=== PATIENT | female | born 1945 | race Hispanic/Latino ===

== ENCOUNTER 2017-06-22 09:42 | Inpatient (IN) | payer MEDICARE ==
--- NOTE | 2017-06-22 10:04 | ED PDOC ---
Arrival/HPI - General Chief Complaint: Shortness Of Breath Time Seen by Provider: 06/22/17 09:46 Historian: Patient - History of Present Illness Narrative History of Present Illness (Text): 06/22/17 10:02 72yo female with PMhx of hypertension who was referred to ED by Dr. odom for SOB and palpitation x 2weeks. Patient states SOB became worse and she saw Dr. odom today. while in the office, EKG showed new onset Afib and patient was referred to the ED. She denies chest pain, fever, cough, diaphoresis, LE edema, calf pain, nausea, vomiting, any other complaint. Past Medical History - Provider Review Nursing Documentation Reviewed: Yes - Infectious Disease Hx of Infectious Diseases: None - Reproductive Menopause: Yes - Cardiac Hx Hypertension: Yes - Pulmonary Hx Respiratory Disorders: No - Neurological Hx Neurological Disorder: No Hx Paralysis: No - HEENT Hx HEENT Disorder: No - Renal Hx Renal Disorder: No - Endocrine/Metabolic Hx Endocrine Disorders: No - Hematological/Oncological Hx Blood Transfusions: No Hx Blood Transfusion Reaction: No - Musculoskeletal/Rheumatological Hx Musculoskeletal Disorders: No - Psychiatric Hx Physical Abuse: No Hx Substance Use: No - Anesthesia Hx Anesthesia Reactions: No Hx Malignant Hyperthermia: No - Suicidal Assessment Feels Threatened In Home Enviroment: No Family/Social History - Physician Review Nursing Documentation Reviewed: Yes Family/Social History: Unknown Family HX Smoking Status: Unknown If Ever Smoked Hx Alcohol Use: No Hx Substance Use: No Allergies/Home Meds Allergies/Adverse Reactions: Allergies No Known Allergies Allergy (Verified 01/14/12 09:35) Home Medications: Home Meds Medication Instructions Recorded Confirmed Aspirin [Aspir 81] 81 mg PO DAILY 01/14/12 06/22/17 Atorvastatin [Lipitor] 20 mg PO QPM 01/14/12 06/22/17 Metoprolol Succinate [Toprol XL] 100 mg PO QAM 01/14/12 06/22/17 Co-Q10 100 mg PO DAILY 06/22/17 06/22/17 FLUoxetine [Fluoxetine HCl] 20 mg PO DAILY 06/22/17 06/22/17 Glucosamine Sulfate Dipot Chlr 1,500 mg PO DAILY 06/22/17 06/22/17 [Glucosamine] Glucosamn/[place]/C/Mn/[place] 1 each PO DAILY 06/22/17 06/22/17 [[facility] Glucosamine Chondroitin Tb] Lansoprazole [Prevacid] 30 mg PO DAILY 06/22/17 06/22/17 Losartan/Hydrochlorothiazide 1 each PO DAILY 06/22/17 06/22/17 [Losartan-Hctz 100-25 mg Tab] Multi Vitamin 1 tab PO DAILY 06/22/17 06/22/17 [place]-3 Fatty Acids/Fish Oil 1 each PO DAILY 06/22/17 06/22/17 [[place] 3 Fish Oil Softgel] Vit D 1000 1 tab PO DAILY 06/22/17 06/22/17 Vitamin E 1 tab PO DAILY 06/22/17 06/22/17 Review of Systems - Physician Review All systems were reviewed & negative as marked: Yes - Review of Systems Constitutional: Normal Eyes: Normal ENT: Normal Respiratory: SOB Cardiovascular: Palpitations. absent: Chest Pain, Edema, Calf Pain Gastrointestinal: Normal Genitourinary Female: Normal Musculoskeletal: Normal Skin: Normal Neurological: Normal Endocrine: Normal Hemo/Lymphatic: Normal Psychiatric: Normal Physical Exam Vital Signs Reviewed: Yes Vital Signs Temp Pulse Resp BP Pulse Ox 06/22/17 13:36 96 H 18 100/69 97 06/22/17 11:42 98 H 18 108/79 98 06/22/17 10:37 108 H 104/91 H 06/22/17 09:55 18 06/22/17 09:50 98.2 F 110 H 16 117/82 98 Temperature: Afebrile Blood Pressure: Normal Pulse: Regular Respiratory Rate: Normal Appearance: Positive for: Well-Appearing, Non-Toxic, Comfortable Pain Distress: None Mental Status: Positive for: Alert and Oriented X 3 - Systems Exam Head: Present: Atraumatic, Normocephalic Pupils: Present: PERRL Extroacular Muscles: Present: EOMI Conjunctiva: Present: Normal Mouth: Present: Moist Mucous Membranes Neck: Present: Normal Range of Motion Respiratory/Chest: Present: Clear to Auscultation, Good Air Exchange. No: Respiratory Distress, Accessory Muscle Use Cardiovascular: Present: Regular Rate and Rhythm, Normal S1, S2. No: Murmurs Abdomen: No: Tenderness, Distention, Peritoneal Signs Back: Present: Normal Inspection Upper Extremity: Present: Normal Inspection. No: Cyanosis, Edema Lower Extremity: Present: Normal Inspection. No: Edema Neurological: Present: GCS=15, CN II-XII Intact, Speech Normal Skin: Present: Warm, Dry, Normal Color. No: Rashes Psychiatric: Present: Alert, Oriented x 3, Normal Insight, Normal Concentration Medical Decision Making ED Course and Treatment: 06/22/17 10:05 72yo female in ED for 2weeks history of SOB and palpitation. EKG A fib with RVR @ 109bpm. cardiac labs, thyroid panel chest xray Cardizem and ASA ordered Pt will be admitted to Dr. davenport's service. CXR NAD Potassium repleted 06/22/17 18:[address] Davenport and pt was admitted. - Lab Interpretations Lab Results: 06/22/17 10:15 06/22/17 10:15 Lab Results 06/22/17 10:15: Thyroxine (T4) 10.7, T3 Uptake 33.5, TSH 3rd Generation 2.59 06/22/17 10:15: Sodium 141, Potassium 3.3 L, Chloride 99, Carbon Dioxide 29, Anion Gap 17, BUN 14, Creatinine 0.7, Est GFR ( Amer) > 60, Est GFR (Non- Af Amer) > 60, Random Glucose 120 H, Calcium 9.3, Total Bilirubin 0.7, AST 38 H , ALT 60 H, Alkaline Phosphatase 86, Lactate Dehydrogenase 516, Total Creatine Kinase 52, Troponin I < 0.01, Total Protein 7.2, Albumin 4.3, Globulin 2.9, Albumin/Globulin Ratio 1.5 06/22/17 10:15: PT 13.6 H, INR 1.18 H, APTT 27.0 06/22/17 10:15: WBC 6.8, RBC 4.41, Hgb 12.4, Hct 37.2, MCV 84.4, MCH 28.1, MCHC 33.3, RDW 14.1, Plt Count 293, MPV 10.7, Gran % 70.0 H, Lymph % (Auto) 19.9 L, [place] % (Auto) 7.0 H, Eos % (Auto) 1.8, Baso % (Auto) 1.3, Gran # 4.78, Lymph # ( Auto) 1.4, [place] # (Auto) 0.5, Eos # (Auto) 0.1, Baso # (Auto) 0.09 - RAD Interpretation Radiology Orders: 06/22/17 09:56 CHEST PORTABLE [RAD] Stat - Medication Orders Current Medication Orders: Aspirin (Ecotrin) 81 mg PO DAILY JOSHUA Atorvastatin Calcium (Lipitor) 20 mg PO QPM JOSHUA Fluoxetine HCl (Prozac) 20 mg PO DAILY J[facility]UA Hydrochlorothiazide (Hydrodiuril) 25 mg PO DAILY JOSHUA Losartan Potassium (Cozaar) 100 mg PO DAILY [facility] Metoprolol Succinate (Toprol Xl) 100 mg PO QAM JOSHUA Discontinued Medications Aspirin (Aspirin) 325 mg PO STAT STA Stop: 06/22/17 13:30 Last Admin: 06/22/17 13:48 Dose: 325 mg Diltiazem HCl (Cardizem) 60 mg PO STAT STA Stop: 06/22/17 10:26 Last Admin: 06/22/17 10:37 Dose: 60 mg MAR Pulse and Blood Pressure Document 06/22/17 10:37 MOBILE PHLEBOTOMIST (Rec: 06/22/17 10:39 [facility] [address] [id number]) Pulse Pulse Rate (60-90) 108 Blood Pressure Blood Pressure (100/60-150/90) 104/91 Potassium Chloride (K-Dur 20 Meq Er Tab) 20 meq PO STAT STA Stop: 06/22/17 10:37 Last Admin: 06/22/17 10:41 Dose: 20 meq Disposition/Present on Arrival - Present on Arrival Any Indicators Present on Arrival: No History of DVT/PE: No History of Uncontrolled Diabetes: No Urinary Catheter: No History of Decub. Ulcer: No History Surgical Site Infection Following: None - Disposition Have Diagnosis and Disposition been Completed?: Yes Diagnosis: New onset a-fib Disposition: HOSPITALIZED Disposition Time: 11:10 Patient Plan: Admission Patient Problems: Current Active Problems Problem Status Onset New onset a-fib Acute Condition: FAIR
[2017-06-22 10:33] LABS: BASO # 0.09 K/mm3 (0.0-2.0); BASO % 1.3 % (0.0-3.0); EOS # 0.1 (0.0-0.7); EOS % 1.8 % (1.5-5.0); GRAN # 4.78 (1.4-6.5); HEMOGLOBIN 12.4 g/dL (12.0-16.0); LYMPH # 1.4 (1.2-3.4); LYMPH % 19.9 % (22.0-35.0); MEAN CELL VOLUME 84.4 fl (80.0-105.0); MEAN CORPUSCULAR HEMOGLOBIN 28.1 pg (25.0-35.0); MEAN CORPUSCULAR HGB CONC 33.3 g/dl (31.0-37.0); MEAN PLATELET VOLUME 10.7 fl (7.0-11.0); MONO # 0.5 (0.1-0.6); RBC 4.41 10^6/uL (3.5-6.1); RED CELL DISTRIBUTION WIDTH 14.1 % (11.5-14.5); WHITE BLOOD COUNT 6.8 10^3/ul (4.5-11.0)
[2017-06-22 10:35] LABS: ALB/GLOB RATIO 1.5 (1.1-1.8); ALBUMIN 4.3 g/dL (3.0-4.8); ALT/SGPT 60 U/L (7-56); AST/SGOT 38 U/L (14-36); BLOOD UREA NITROGEN 14 mg/dL (7-21); CALCIUM 9.3 mg/dL (8.4-10.5); GFR AFRICAN-AMERICAN > 60; GFR NON-AFRICAN AMERICAN > 60
[2017-06-22] MEDS ORDERED: Potassium Chloride 20 mEq ER Tab PO STA (10:36)
[2017-06-22 10:42] LABS: INR 1.18 (0.93-1.08); PROTHROMBIN TIME 13.6 SECONDS (9.4-12.5)
[2017-06-22 10:46] LABS: TROPONIN I < 0.01 ng/mL
[2017-06-22 10:53] LABS: T3 UPTAKE 33.5 % (23.0-41.0); T4 10.7 ug/dL (5.5-11.0)
--- NOTE | 2017-06-22 10:55 | RAD ---
HISTORY: SOB COMPARISON: 05/07/2016 FINDINGS: LUNGS: No active pulmonary disease. PLEURA: No significant pleural effusion identified, no pneumothorax apparent. CARDIOVASCULAR: Normal. OSSEOUS STRUCTURES: No significant abnormalities. VISUALIZED UPPER ABDOMEN: Normal. OTHER FINDINGS: None. IMPRESSION: No active disease.
--- NOTE | 2017-06-22 18:25 | CARD ---
APPROVED REPORT EKG Measurement Heart [id number] <Conclusion> Atrial fibrillation with rapid ventricular response with premature ventricular or aberrantly conducted complexes Nonspecific ST and T wave abnormality, probably digitalis effect Abnormal ECG
--- NOTE | 2017-06-23 00:44 | CP.PCM.PN ---
Subjective - Date & Time of Evaluation Date of Evaluation: 06/23/17 Time of Evaluation: 00:33 - Subjective Subjective: S:Patient was seen at bedside. She requested a sleeping pill. Has no other complaints. Pertinent medical record was reviewed. O: Last Vital Signs 3 Temp 97.8 F 06/22/17 17:35 Pulse 98 H 06/22/17 18:00 Resp 20 06/22/17 17:35 BP 133/81 06/22/17 17:35 Pulse Ox 97 06/22/17 13:36 Awake, alert, not in distress. Obese person. LUNGS: Normal breathing pattern. NEURO:Speech normal. A:Adjustment Insomnia. P:Benadryl 50 mg PO X 1. Objective - Vital Signs/Intake and Output Vital Signs (last 24 hours): Temp Pulse Resp BP Pulse Ox 97.8 F 98 H 20 133/81 97 06/22/17 17:35 06/22/17 18:00 06/22/17 17:35 06/22/17 17:35 06/22/17 13:36 - Medications Medications: Current Medications Aspirin (Ecotrin) 81 mg PO DAILY JOSHUA Atorvastatin Calcium (Lipitor) 20 mg PO QPM JOSHUA Diphenhydramine HCl (Benadryl) 50 mg PO STAT STA Stop: 06/23/17 00:33 Fluoxetine HCl (Prozac) 20 mg PO DAILY JOSHUA Hydrochlorothiazide (Hydrodiuril) 25 mg PO DAILY JOSHUA Losartan Potassium (Cozaar) 100 mg PO DAILY JOSHUA Metoprolol Succinate (Toprol Xl) 100 mg PO QAM JOSHUA - Labs Labs: PT 13.6 SECONDS (9.4-12.5) H 06/22/17 10:15 INR 1.18 (0.93-1.08) H 06/22/17 10:15 APTT 27.0 Seconds (25.1-36.5) 06/22/17 10:15
[2017-06-23 06:28] VITALS: O2SAT 97
[2017-06-23] MEDS ORDERED: Non Formulary Medication (Losartan/Hydrochlorothiazide [Losartan-Hctz 100-25 Mg Tab] 1 EAC PO SCH (10:00)
[2017-06-23] MEDS ORDERED: Metoprolol Succinate 100 mg XL Tab PO SCH (10:00)
[2017-06-23] MEDS: Metoprolol Succinate 50 mg XL Tab PO SCH ×3 (10:01→18:01)
[2017-06-23] MEDS: Potassium Chloride 20 mEq ER Tab PO SCH ×2 (10:02→18:01)
[2017-06-23 10:55] LABS: ALB/GLOB RATIO 1.3 (1.1-1.8); ALBUMIN 3.6 g/dL (3.0-4.8); ALT/SGPT 59 U/L (7-56); AST/SGOT 32 U/L (14-36); BLOOD UREA NITROGEN 14 mg/dL (7-21); CALCIUM 9.2 mg/dL (8.4-10.5); GFR AFRICAN-AMERICAN > 60; GFR NON-AFRICAN AMERICAN > 60
--- NOTE | 2017-06-23 17:40 | HP ---
CHIEF COMPLAINT AND HISTORY OF PRESENT ILLNESS: This is a 72-year-old female who is coming into the hospital because of elevated heart rate. The patient had initially gone to see her primary care doctor, Dr. Sanchez, who was having shortness of breath and palpitations for the past 2 weeks. She said that her shortness of breath was getting worse. She had an EKG done in the office and it showed atrial fibrillation. The patient denies any chest pain. No abdominal pain or back pain. No dysuria, frequency, or nocturia. No weakness in the arms or the legs. REVIEW OF SYMPTOMS: All other review of symptoms are within normal limits except that was mentioned. ALLERGIES: NO KNOWN DRUG ALLERGIES. HOME MEDICATIONS: Aspirin, Lipitor, Toprol, fluoxetine, glucosamine, Prevacid, losartan/hydrochlorothiazide, vitamin D, vitamin E. SOCIAL HISTORY: The patient denies smoking, drinking alcohol. FAMILY HISTORY: Noncontributory. PAST MEDICAL HISTORY: Dyslipidemia and hypertension. PHYSICAL EXAMINATION: VITAL SIGNS: Temperature is 98.3, pulse of 110, blood pressure 118/79, respirations 18, O2 saturation 97%. GENERAL: The patient lying in bed, uncomfortable, and in no acute distress. HEENT: Atraumatic and normocephalic. Anicteric sclerae. Moist mucosa. [place] conjunctivae. No oral lesions. NECK: No JVD, anterior and posterior adenopathy, thyromegaly, or bruits. CARDIOVASCULAR: S1 and S2, irregular. No murmur, rubs. LUNGS: Clear to auscultation bilaterally. No wheezes, rales, or rhonchi. ABDOMEN: Bowel sounds are positive. Soft, nontender and nondistended. No hepatosplenomegaly. No rebound and no guarding. EXTREMITIES: No cyanosis, clubbing, or edema. NEUROLOGIC: No facial asymmetry. Tongue is midline. No uvula deviation. Power is 5/5 upper extremity and lower extremity. Sensation intact in upper extremity and lower extremity. PSYCHIATRIC: She is awake, alert and oriented x3. No anxiety or depression. She has normal affect. GENITOURINARY: No CVA tenderness. VASCULAR: 2+ pulses in the carotid pulses and pedal pulses. SKIN: No erythema or nodules. SPINE: Shows normal curvature. LABORATORY DATA: White count of 6.8, hemoglobin 12.4. INR is 1.1. Chemistry shows sodium 141, potassium 3.3. AST and ALT are 38 and 60. Troponin is 0.01. TSH is 2.59. EKG shows atrial fibrillation with rapid rate of 109, QTC 514. Chest x-ray done shows no active disease. ASSESSMENT: 1. Atrial fibrillation, new onset. 2. Dyslipidemia. 3. Obese with body mass index of 35. 4. Hypertension. PLAN: The patient is going to be admitted to hospital. She had a heart rate that is elevated. EKG shows an atrial fibrillation. The patient is going to need further evaluation. She is going to be seen by Dr. Saba this morning. I did speak to him regarding the case from Cardiology. The patient is on losartan for her hypertension. She is on hydrochlorothiazide for her hypertension as well. The patient is on Lipitor for dyslipidemia. She is on metoprolol for her atrial fibrillation. She will most likely needed to be on anticoagulation with Eliquis. The patient is on heart-healthy diet. We will continue to follow. We will await further input from Dr. Saba. Polo Davenport MD
--- NOTE | 2017-06-23 18:00 | CON ---
DATE: 06/23/2017 INDICATION: Atrial fibrillation, new onset. HISTORY OF PRESENT ILLNESS: This is a 72-year-old woman who was found to have atrial fibrillation when she complained to Dr. Sanchez of shortness of breath and palpitations for several weeks. She noted dyspnea on stair climbing and occasional palpitations. She presented to the emergency room. She was given Cardizem p.o. and admitted to telemetry. This morning, she notes occasional palpitations, but not chest pain, shortness of breath, orthopnea, PND, syncope, presyncope, lightheadedness, dizziness, or vertigo. No edema, claudication. No fever, chills, cough, sputum production, hemoptysis. No abdominal pain, nausea, vomiting, diarrhea, constipation, or melena. PAST MEDICAL HISTORY: Notable for hypertension, but no prior cardiac history. She has a history of negative stress test several years ago. There is no history of rheumatic fever, myocardial infarction, angina, congestive heart failure, prior arrhythmia, stroke, TIA, diabetes, hyperlipidemia, or gout. MEDICATIONS: At the time of admission include; metoprolol, aspirin, CoQ10, multivitamin, vitamins D and E, glucosamine chondroitin, Lipitor, losartan HCT, omega-3 fatty acids, Prevacid, fluoxetine. ALLERGIES: THERE WERE NO MEDICATION ALLERGIES. SOCIAL HISTORY: She lives at home with her . She is ambulatory. She does not smoke. She does not drink alcohol significantly. FAMILY HISTORY: Noncontributory. REVIEW OF SYSTEMS: A 10-point review of systems is otherwise unremarkable except as noted above. PHYSICAL EXAMINATION: GENERAL: She is a well-developed woman, sitting on her bed in telemetry, in no acute distress. VITAL SIGNS: Notable for atrial fibrillation at 100 to 125 beats per minute. She is afebrile. Blood pressure 109/65, respirations 18, O2 sat 96% to 97% on room air. HEENT: Reveal no neck vein distention, thyromegaly, or carotid bruits. Mucous membranes moist. Conjunctivae pink. NECK: Supple. LUNGS: Lung myles clear throughout. HEART: Reveals irregular rhythm. Normal first and second heart sounds. No murmur, gallop, rub, or click. PMI not palpable. ABDOMEN: Soft. Bowel sounds present. No mass, organomegaly, tenderness, rebound, or guarding. EXTREMITIES: Reveal no cyanosis, clubbing, or edema. NEUROLOGIC: She is awake, alert, and oriented. PSYCHIATRIC: Normal as to mood and affect. SKIN: Warm and dry. No rash or cellulitis. LABORATORY AND IMAGING: The chest x-ray revealed no acute disease. EKG demonstrated atrial fibrillation with ventricular rate of 109 beats per minute. There were nonspecific ST wave changes. CBC is unremarkable. PT/INR 13.6 and 1.18, PTT 27. Electrolytes notable for potassium of 3.3, otherwise unremarkable. BUN and creatinine normal. Random blood sugar 120. Mildly elevated AST and ALT. Alk phos is normal. LDH is normal. CK is normal. Two troponin's are normal. Thyroid functions are normal. IMPRESSION: Dayami Jaramillo is a 72-year-old hypertensive woman who presents with atrial fibrillation of approximately two weeks' duration by symptoms. There is no evidence of acute myocardial infarction. She does not describe chest pain, although sometimes the palpitations are associated with a tightness in the upper chest. Her potassium level is low. PLAN: At this time, she is on telemetry. We will increase her metoprolol to 150 mg daily, given 50 mg t.i.d. to control her rate and perhaps cause reversion to sinus rhythm. We will replace potassium. We will continue Lipitor. I will add Eliquis 5 mg b.i.d. and discontinue aspirin at this time. She can be out of bed. We will monitor stool for occult blood. I will order an echocardiogram. I will arrange for an outpatient nuclear stress test. She will be instructed regarding the use of long-term anticoagulation. Her LYLA score is 3. I will follow along with you. I will make additional recommendations based on her clinical course. Lc Saba MD CHANI
--- NOTE | 2017-06-24 01:07 | CP.PCM.PN ---
Subjective - Date & Time of Evaluation Date of Evaluation: 06/24/17 Time of Evaluation: 01:02 - Subjective Subjective: S: Patient was seen at bedside because she requested a sleeping pill. States that she received benadryl yesterday for sleep which was not of much help. Has no other complaints. Pertinent medical record was reviewed. O: Last Vital Signs 3 Temp 98.6 F 06/23/17 17:16 Pulse 103 H 06/23/17 18:01 Resp 17 06/23/17 17:16 BP 119/76 06/23/17 18:01 Pulse Ox 97 06/23/17 06:00 Awake,alert, not in distress. LUNGS: Normal breathing pattern. NEURO: Normal speech. A:Insomnia-adjustment. P:Ambien 5 mg PO x 1. Objective - Vital Signs/Intake and Output Vital Signs (last 24 hours): Temp Pulse Resp BP Pulse Ox 98.6 F 103 H 17 119/76 97 06/23/17 17:16 06/23/17 18:01 06/23/17 17:16 06/23/17 18:01 06/23/17 06:00 - Medications Medications: Current Medications Apixaban (Eliquis) 5 mg PO BID [facility] PRN Reason: Protocol Last Admin: 06/23/17 18:02 Dose: 5 mg Aspirin (Ecotrin) 81 mg PO DAILY [facility] Atorvastatin Calcium (Lipitor) 20 mg PO QPM [facility] Last Admin: 06/23/17 18:01 Dose: 20 mg Famotidine (Pepcid) 40 mg PO DAILY [facility] Last Admin: 06/23/17 11:00 Dose: Not Given Fluoxetine HCl (Prozac) 20 mg PO DAILY [facility] Last Admin: 06/23/17 10:01 Dose: 20 mg Losartan Potassium (Cozaar) 100 mg PO DAILY [facility] Last Admin: 06/23/17 10:02 Dose: 100 mg Metoprolol Succinate (Toprol Xl) 50 mg PO TID [facility] Last Admin: 06/23/17 18:01 Dose: 50 mg Potassium Chloride (K-Dur 20 Meq Er Tab) 20 meq PO BID [facility] Last Admin: 06/23/17 18:01 Dose: 20 meq - Labs Labs: 06/23/17 06:00 PT 13.6 SECONDS (9.4-12.5) H 06/22/17 10:15 INR 1.18 (0.93-1.08) H 06/22/17 10:15 APTT 27.0 Seconds (25.1-36.5) 06/22/17 10:15
[2017-06-24 04:47] VITALS: RESP 20
[2017-06-24 06:33] VITALS: TEMP 98.5
--- NOTE | 2017-06-24 08:34 | CARD ---
APPROVED REPORT EXAM: Two-dimensional and M-mode echocardiogram with Doppler and color Doppler. Other Information Quality : AverageRhythm : INDICATION Atrial fibrillation, HBP 2D DIMENSIONS Left Atrium (2D)4.7 (1.6-4.0cm)IVSd0.9 (0.7-1.1cm) LVDd4.5 (3.9-5.9cm)PWd1.0 (0.7-1.1cm) M-Mode DIMENSIONS Aortic Root2.60 (2.2-3.7cm)Aortic Cusp Exc.1.60 (1.5-2.0cm) Aortic Valve AoV Peak Jywigrvr664.0cm/Renea P 1/2 [id number] Mitral Valve E/A ratio0.0 TDI E/Lateral E'0.0E/Medial E'0.0 Pulmonary Valve PV Peak Ejjhsyod25.3cm/sPV Peak Grad.1mmHg Tricuspid Valve TR Peak [id number]/sRAP [id number] Peak Gr.51mmHg [id number] LEFT VENTRICLE The left ventricle is normal size. There is normal left ventricular wall thickness. Left ventricle systolic function is low normal. The Ejection Fraction is 50-55%. RIGHT VENTRICLE The right ventricle is normal size. ATRIA The left atrium is mildly dilated. The right atrium size is normal. The interatrial septum is intact with no evidence for an atrial septal defect. AORTIC VALVE The aortic valve is mildly calcified. There is mild aortic regurgitation. MITRAL VALVE The mitral valve is normal in structure. Mitral regurgitation is mild to moderate. TRICUSPID VALVE The tricuspid valve is normal in structure. There is moderate tricuspid regurgitation. There is moderate pulmonary hypertension. PULMONIC VALVE The pulmonic valve is not well visualized. GREAT VESSELS The aortic root is normal in size. PERICARDIAL EFFUSION There is no pericardial effusion. <Conclusion> The left ventricle is normal size. There is normal left ventricular wall thickness. Left ventricle systolic function is low normal. The Ejection Fraction is 50-55% (in AF). There is mild aortic regurgitation. Mitral regurgitation is mild to moderate. There is moderate tricuspid regurgitation. There is moderate pulmonary hypertension.
--- NOTE | 2017-06-24 08:50 | CP.PCM.PN ---
Subjective - Date & Time of Evaluation Date of Evaluation: 06/24/17 Time of Evaluation: 07:00 - Subjective Subjective: Stable on 2R. No CP or SOB. Still occasional palpitations while walking. V/S noted. AF ~ low 100's PE: Lungs: clear Cor.: irreg S1S2, sys murmur Abd.: soft Ext.: no edema Neuro.: alert Labs 06/23 noted. K+= 3.2, trops neg x 2 Echo: Low NL EF while in AF, mild AI, mild/mod MR, mod. TR and PH Objective - Vital Signs/Intake and Output Vital Signs (last 24 hours): Temp Pulse Resp BP Pulse Ox 98.5 F 116 H 20 144/104 H 97 06/24/17 06:00 06/24/17 06:00 06/24/17 06:00 06/24/17 06:00 06/24/17 06:00 Intake and Output: 06/24/17 06/24/17 06:59 18:59 Intake Total 780 340 Balance 780 340 - Medications Medications: Current Medications Apixaban (Eliquis) 5 mg PO BID [facility] PRN Reason: Protocol Last Admin: 06/23/17 18:02 Dose: 5 mg Aspirin (Ecotrin) 81 mg PO DAILY [facility] Atorvastatin Calcium (Lipitor) 20 mg PO QPM [facility] Last Admin: 06/23/17 18:01 Dose: 20 mg Famotidine (Pepcid) 40 mg PO DAILY [facility] Last Admin: 06/23/17 11:00 Dose: Not Given Fluoxetine HCl (Prozac) 20 mg PO DAILY [facility] Last Admin: 06/23/17 10:01 Dose: 20 mg Losartan Potassium (Cozaar) 100 mg PO DAILY [facility] Last Admin: 06/23/17 10:02 Dose: 100 mg Metoprolol Succinate (Toprol Xl) 100 mg PO BID [facility] Potassium Chloride (Klor-Con 10) 30 meq PO ONCE ONE Stop: 06/24/17 10:01 - Labs Labs: 06/23/17 06:00 PT 13.6 SECONDS (9.4-12.5) H 06/22/17 10:15 INR 1.18 (0.93-1.08) H 06/22/17 10:15 APTT 27.0 Seconds (25.1-36.5) 06/22/17 10:15 Assessment and Plan - Assessment and Plan (Free Text) Assessment: Palpitations/SOB New AF, probably 2 weeks old HBP Hypokalemia, probably due to HCTZ Plan: Increase metoprolol to 100 BID PO KCL 30 mg. this AM. OOB/Ambulate this AM Plan D/C later today. D/C meds: metoprolol tartrate 100 BID, Eliquis 5 BID, atorvastatin 20 QD. Discontinue: losartan/HCT and ASA. Office f/u Tuesday with stress test to follow. Will check K+ level. Case D/W Dr. Davenport.
[2017-06-24] MEDS ORDERED: Potassium Chloride 10 mEq ER Tab PO ONE (10:00)
[2017-06-24] MEDS ORDERED: Metoprolol Succinate 100 mg XL Tab PO ONE (10:44)
[2017-06-24 10:52] VITALS: BP 129/98; PULSE 90
--- NOTE | 2017-06-24 23:44 | DS ---
HISTORY OF PRESENT ILLNESS: The patient has no complaints of any chest pain, no shortness of breath, no headaches or dizziness. She initially came into the hospital because she had new-onset atrial fibrillation. The patient had been seen by Dr. Saba. An echocardiogram has been ordered, the results are pending. Her thyroid function was normal. She has currently controlled rate. She is on metoprolol three times a day as well as Eliquis. She has no headaches, no dizziness, no nausea, no vomiting. PHYSICAL EXAMINATION: VITAL SIGNS: Temperature is 98.1, pulse of 80, blood pressure is 117/85, respirations 20. GENERAL: The patient is lying in bed, flat, comfortable. HEENT: No oral lesion. Anicteric sclerae. Moist mucosa. NECK: No JVD, adenopathy, or thyromegaly. CARDIOVASCULAR: S1 and S2, regular. No murmurs, rubs, or gallops. LUNGS: Clear to auscultation bilaterally. No wheeze, rales, or rhonchi. ABDOMEN: Bowel sounds are positive, soft, nontender and nondistended. EXTREMITIES: No cyanosis, clubbing or edema. ASSESSMENT: 1. Atrial fibrillation, new onset. 2. Dyslipidemia. 3. Obesity with body mass index of 35. 4. Hypertension. PLAN: The patient is currently on losartan for hypertension. She has been started on apixaban for her anticoagulation. The patient is on Lipitor for dyslipidemia. She is on fluoxetine as an antidepressant. The patient is on metoprolol. She is going to be discharged home if she is cleared by Dr. Saba. CONDITION: Stable. ACTIVITY: Increased as tolerated. Polo Davenport MD
[2017-06-25] MEDS ORDERED: Metoprolol Succinate 100 mg XL Tab PO SCH ×2 (08:00→10:00)
[2017-06-25] MEDS ORDERED: Metoprolol Succinate 100 mg XL Tab PO ONE (10:43)
== END 2017-06-24 12:36 | disposition home or self-care (01) | DRG 310 ==
LOC: ED 09:42 → ERH 11:07 → 2RNO 14:16
PROVIDERS: ADMIT Internal Medicine Nephrology; ATTEND Internal Medicine Nephrology
DX: I48.91 Unspecified atrial fibrillation (principal); I10 Essential (primary) hypertension; E78.5 Hyperlipidemia, unspecified; E87.6 Hypokalemia; T50.2X5A Adverse effect of carbonic-anhydrase inhibitors, benzothiadiazides and other diuretics, initial encounter; E66.9 Obesity, unspecified; Z68.35 Body mass index [BMI] 35.0-35.9, adult; F51.02 Adjustment insomnia

== ENCOUNTER 2017-11-09 06:04 | Day surgery (SDC) | payer MEDICARE ==
[2017-10-19 09:19] VITALS: BMI 34.1
[2017-11-09] MEDS ORDERED: Iodixanol 320 mg/ml 150 ml Bottle IV ONE (06:47)
[2017-11-09] MEDS ORDERED: Iodixanol 320 MG/ML 100 ML BOTTLE IV ONE (06:47)
[2017-11-09] MEDS ORDERED: Phenylephrine 10 mg/ml Inj ONE (06:47)
[2017-11-09] MEDS ORDERED: Midazolam 2 MG/2 ML VIAL ONE ×2 (07:26→07:29)
[2017-11-09] MEDS ORDERED: Sodium Chloride 0.9% 1,000 ML IV SCH (08:00)
[2017-11-09 08:11] VITALS: TEMP 97.9
--- NOTE | 2017-11-09 08:37 | CARDCATH ---
PROCEDURE DATE: 11/09/2017 PROCEDURE: Right heart catheterization. HISTORY: This is a 72-year-old woman with recent onset of atrial fibrillation and progressive dyspnea, was found to have evidence of possible pulmonary hypertension on echocardiography. Right heart catheterization was advised to document her right heart pressures. INDICATIONS: As above. PROCEDURE FINDINGS: Venous access was obtained via the right femoral vein. Loomis-Anders catheter was used for pressure measurements and thermodilution cardiac output determination. The findings were as follows: The RA mean pressure was 3. The RV pressure was 24/2. The PA pressure was 28/19. The mean pulmonary artery pressure was 22. The pulmonary capillary wedge pressure was 12. A V wave with mitral regurgitation was noted to 25 mmHg. The cardiac output by thermodilution method was 4.4 liters/minute with cardiac index of 2.2 liters per minute per meter square. Loomis-Anders catheter was removed and the venous sheath removed as well. Manual pressure was applied to achieve adequate hemostasis. FINDINGS: 1. Normal right heart pressures. 2. Normal cardiac output. RECOMMENDATIONS: Given the above findings, continued medical therapy and monitoring of her mitral regurgitation is advised. Consideration will be given to attempts to restore normal sinus rhythm. Ander Beltran MD cc: Jigar Colby MD
[2017-11-09 09:08] VITALS: RESP 18
[2017-11-09 09:50] VITALS: PULSE 64
[2017-11-09 10:06] VITALS: BP 130/79; O2SAT 96
== END 2017-11-09 10:30 | disposition home or self-care (01) ==
LOC: CATH 06:04
PROVIDERS: ATTEND Internal Medicine Cardiovascular Disease
DX: I27.20 Pulmonary hypertension, unspecified (principal); I10 Essential (primary) hypertension; I49.9 Cardiac arrhythmia, unspecified; I34.0 Nonrheumatic mitral (valve) insufficiency; R06.00 Dyspnea, unspecified; E66.9 Obesity, unspecified; Z85.3 Personal history of malignant neoplasm of breast; I48.91 Unspecified atrial fibrillation; Z68.34 Body mass index [BMI] 34.0-34.9, adult
CPT/HCPCS: 36415; 86850; 86900; 93451; 99152; 99153; C1894; J1644; J2250; J3010; J7030; Q9967

== ENCOUNTER 2017-11-23 07:54 | Day surgery (SDC) | payer MEDICARE ==
[2017-11-21 12:06] VITALS: BMI 32.9
--- NOTE | 2017-11-23 09:02 | CARD ---
APPROVED REPORT Date of service: 11/23/2017 EKG Measurement Heart [id number] <Conclusion> Atrial fibrillation STTW changes c/w ischemia
[2017-11-23] MEDS ORDERED: Naloxone 0.4 mg/ml Inj (Adult) ONE (10:32)
[2017-11-23] MEDS ORDERED: Flumazenil 0.1 mg/ml Inj (5ml) IVP ONE (10:32)
[2017-11-23] MEDS ORDERED: Midazolam 2 MG/2 ML VIAL ONE (10:32)
[2017-11-23] MEDS ORDERED: Midazolam 2 MG/2 ML VIAL IV ONE ×2 (10:35→10:40)
[2017-11-23 12:06] VITALS: BP 127/69; PULSE 70; RESP 20; TEMP 98; O2SAT 99
--- NOTE | 2017-11-23 12:50 | CARD ---
APPROVED REPORT Date of service: 11/23/2017 EXAM: Transesophageal echocardiogram with color flow Doppler and Synchronized Cardioversion. INDICATION Atrial Fibrillation Reason For Test : Rule out Intracardiac Thrombus. PROCEDURE After obtaining informed consent, patient underwent transesophageal echo in the Echo Lab. Type of Sedation : Conscious Sedation Sedation was achieved with Versed, Fentanyl intravenously. Transesophageal probe was inserted and advanced into esophagus without difficulty. Echo enhancement agent administered: Agitated Saline The BILLY was performed without complications. Synchronized Cardioversion acheived with 360 Joules after 3 attempt(s). Rhythm following Synchronized Cardioversion: Normal Sinus Rhythm, but reversion to atrial fibrillation occurred Throughout the procedure, the blood pressure, pulse oximetry, cardiac rhythm, and rate were monitored. The patient tolerated the procedure without adverse effects. Recovery from conscious sedation was uneventful and vital signs were stable. LEFT VENTRICLE The left ventricle is normal size. There is mild concentric left ventricular hypertrophy. The left ventricular function is normal. The left ventricular ejection fraction is within the normal range. There is normal LV segmental wall motion. RIGHT VENTRICLE The right ventricle is normal size. The right ventricular systolic function is normal. ATRIA The left atrium is mildly dilated. The right atrium size is normal. The interatrial septum is intact with no evidence for an atrial septal defect. AORTIC VALVE The aortic valve is mildly sclerotic. No aortic regurgitation is present. There is no aortic valvular stenosis. MITRAL VALVE The mitral valve leaflets are mildly thickened. Mitral regurgitation is mild to moderate. TRICUSPID VALVE The tricuspid valve is normal in structure. There is mild to moderate tricuspid regurgitation. PULMONIC VALVE The pulmonary valve is normal in structure. GREAT VESSELS The aortic root is normal in size. The ascending aorta is normal in size. Mild atherosclerotic plaque is noted in the descending thoracic aorta. The IVC is normal in size and collapses >50% with inspiration. PERICARDIAL EFFUSION There is no pericardial effusion. There is no pleural effusion. <Conclusion> Dilated LA. Normal LV size and sysotlic function. Mild concentric LVH. Mild to moderate MR. Mild to moderate TR. Spontaneous echo contrast seen in DILIP, but no thrombus present. Cardioversion performed x 3 (100 Joules, 200 Joules, 360 Joules) with eventual conversion to NSR, but atrial fibrillation recurred.
--- NOTE | 2017-11-23 13:36 | CARD ---
APPROVED REPORT Date of service: 11/23/2017 EKG Measurement Heart [id number] <Conclusion> Atrial fibrillation ST & T wave changes c/w ischemia
== END 2017-11-23 12:30 | disposition home or self-care (01) ==
LOC: SDS 07:54 → SDSVAS 07:54 → SDS 12:30
PROVIDERS: ATTEND Internal Medicine Cardiovascular Disease
DX: I48.0 Paroxysmal atrial fibrillation (principal); I10 Essential (primary) hypertension; I25.10 Atherosclerotic heart disease of native coronary artery without angina pectoris; R06.00 Dyspnea, unspecified
CPT/HCPCS: 92960; 93005; 93312; J2250; J3010; J7040

== ENCOUNTER → 2018-01-06 | Day surgery (SDC) | payer MEDICARE ==
[2017-11-21 12:06] VITALS: BMI 32.9
[~2018-01-06] MED LIST: Propofol 10 mg/ml Inj (20 ML) ONE; Sodium Chloride 0.9% 1,000 ML IV SCH
[2018-01-06 14:43] VITALS: BP 131/73; PULSE 78; RESP 18; TEMP 97.9; O2SAT 99
== END | disposition home or self-care (01) ==
LOC: ENDO 09:43
PROVIDERS: ATTEND Internal Medicine Gastroenterology
DX: K57.30 Diverticulosis of large intestine without perforation or abscess without bleeding (principal); K56.2 Volvulus; K64.8 Other hemorrhoids; R19.7 Diarrhea, unspecified; K31.7 Polyp of stomach and duodenum; K22.70 Barrett's esophagus without dysplasia; K29.50 Unspecified chronic gastritis without bleeding; K21.9 Gastro-esophageal reflux disease without esophagitis; K44.9 Diaphragmatic hernia without obstruction or gangrene
CPT/HCPCS: 43239; 43251; 45380; 88305; 88312; 88342; J2001; J2704; J7030 ×2; J7040

== ENCOUNTER 2018-04-05 06:53 | Day surgery (SDC) | payer MEDICARE ==
[2018-03-29 09:31] VITALS: BMI 32.4
[2018-04-05] MEDS ORDERED: Midazolam 2 MG/2 ML VIAL ONE (08:56)
[2018-04-05] MEDS ORDERED: Naloxone 0.4 mg/ml Inj (Adult) ONE (08:56)
[2018-04-05] MEDS ORDERED: Flumazenil 0.1 mg/ml Inj (5ml) IVP ONE (08:56)
[2018-04-05] MEDS ORDERED: Midazolam 2 MG/2 ML VIAL IV ONE ×2 (09:25→09:29)
--- NOTE | 2018-04-05 10:12 | CARD ---
APPROVED REPORT Date of service: 04/05/2018 EKG Measurement Heart [id number] <Conclusion> Sinus bradycardia with 1st degree AV block Nonspecific ST abnormality Abnormal ECG
--- NOTE | 2018-04-05 10:13 | CARD ---
APPROVED REPORT Date of service: 04/05/2018 EKG Measurement Heart [id number] <Conclusion> Atrial fibrillation Abnormal ECG
[2018-04-05 10:45] VITALS: RESP 16; TEMP 97.4
[2018-04-05 10:59] VITALS: BP 107/71; PULSE 59; O2SAT 98
--- NOTE | 2018-04-06 08:27 | PROCN ---
PROCEDURE DATE: 04/05/2018 CARDIOVERSION REPORT PROCEDURE: Electrical cardioversion. HISTORY: This is a 73-year-old woman with paroxysmal atrial fibrillation who was brought in for attempted electrical cardioversion. She has been loaded with amiodarone. INDICATIONS: Atrial fibrillation. DESCRIPTION OF PROCEDURE: Informed consent was obtained including risks and benefits have been discussed in detail with the patient. IV Versed 4 mg and 100 mg of IV fentanyl were administered to achieve adequate sedation. Subsequently, cardioversion was performed with 200 joules of biphasic synchronous energy with successful conversion from atrial fibrillation to sinus rhythm. The patient tolerated the procedure well. CONCLUSION: Successful conversion of atrial fibrillation to sinus rhythm. RECOMMENDATIONS: The patient will be followed up us in the office tomorrow. Her amiodarone therapy will be continued at this time. Ander Beltran MD
== END 2018-04-05 11:05 | disposition home or self-care (01) ==
LOC: TEE 06:53
PROVIDERS: ATTEND Internal Medicine Cardiovascular Disease
DX: I48.0 Paroxysmal atrial fibrillation (principal); I10 Essential (primary) hypertension
CPT/HCPCS: 92960; 93005; J2250; J3010

== ENCOUNTER 2018-04-07 23:47 | Inpatient (IN) | payer MEDICARE ==
[2018-04-07 23:52] VITALS: BMI 33.3
--- NOTE | 2018-04-08 00:07 | ED PDOC ---
Arrival/HPI - General Chief Complaint: Chest Pain Time Seen by Provider: 04/07/18 23:51 Historian: Patient - History of Present Illness Narrative History of Present Illness (Text): 04/08/18 00:06 73 year old female, whose past medical history includes hiatal hernia, Jerardo's esophagus, GERD, Sleep Apnea on CPAP, Hypertension, paroxysmal a-fib s/p electrical cardioversion (04/05/[address] Beltran ), presents to the emergency department complaining of mid-sternal chest pressure and shortness of breath 2 hours prior to arrival while laying on the couch. Patient reports she had hotdogs and beans before the chest pressure began. She reports she is on Eliquis & amioderone. Patient denies any fever, chills, abdominal pain, nausea, vomiting, diarrhea, urinary symptoms, back pain, neck pain, headache, dizziness, or any other complaints. PMD: Dr. Sanchez Cardio: Dr. Saba Time/Duration: 1-3 hours Symptom Onset: Sudden Symptom Course: Unchanged Activities at Onset: Light Context: Home Past Medical History - Provider Review Nursing Documentation Reviewed: Yes - Travel History Have you recently traveled outside [place] w/in the past 3 mons?: No - Infectious Disease Hx of Infectious Diseases: None - Cardiac Hx Cardiac Disorders: Yes Hx Atrial Fibrillation: Yes (cardioverted 03/2018) Hx Hypertension: Yes Hx Pacemaker: No - Pulmonary Hx Respiratory Disorders: Yes Hx Asthma: Yes - Neurological Hx Paralysis: No - HEENT Hx HEENT Disorder: No - Renal Hx Renal Disorder: No - Endocrine/Metabolic Hx Endocrine Disorders: No - Hematological/Oncological Hx Blood Transfusions: No - Musculoskeletal/Rheumatological Hx Musculoskeletal Disorders: Yes - Gastrointestinal Hx Gastrointestinal Disorders: Yes - Psychiatric Hx Emotional Abuse: No Hx Physical Abuse: No Hx Substance Use: No - Surgical History Other/Comment: left breast lumpectomy - Anesthesia Hx Anesthesia Reactions: No Hx Malignant Hyperthermia: No - Suicidal Assessment Feels Threatened In Home Enviroment: No Family/Social History - Physician Review Nursing Documentation Reviewed: Yes Family/Social History: No Known Family HX Smoking Status: Never Smoked Hx Alcohol Use: No Hx Substance Use: No Allergies/Home Meds Allergies/Adverse Reactions: Allergies adhesive tape Allergy (Verified 04/07/18 23:52) RASH amoxicillin [From Augmentin] Adverse Reaction (Verified 04/08/18 03:20) DIARRHEA clavulanic acid [From Augmentin] Adverse Reaction (Verified 04/08/18 03:20) DIARRHEA Home Medications: Home Meds Medication Instructions Recorded Confirmed Atorvastatin [Lipitor] 20 mg PO QPM 01/14/12 04/08/18 FLUoxetine [Fluoxetine HCl] 20 mg PO DAILY 06/22/17 04/08/18 RX: [place]-3 Fatty Acids/Fish Oil 1 cap PO DAILY 06/22/17 04/08/18 [[place] 3 Fish Oil Softgel] Diltiazem HCl [Cartia Xt] 180 mg PO BID 10/19/17 04/08/18 Fluticasone Furoate [Arnuity 1 puff IH DAILY 10/19/17 04/08/18 Ellipta] Glucosamine/MSM/Chondroitin A 1 tab PO DAILY 10/19/17 04/08/18 [Glucosamine, Chondroitin and MSM 400 mg-375 M] Levalbuterol Tartrate 1 puff IH TID 10/19/17 04/08/18 [Levalbuterol Tartrate Hfa] RX: Omeprazole 40 mg PO DAILY 10/19/17 04/08/18 Vitamin E Mixed [Vitamin E] 1,000 unit PO DAILY 10/19/17 04/08/18 Calcium Citrate/Vitamin D2 1 tab PO DAILY 12/29/17 04/08/18 [Vinicio-Citrate Plus Vitamin D Tab] Ubidecarenone [Coq-10] 100 mg PO DAILY 12/29/17 04/08/18 Amiodarone [Cordarone] 200 mg PO BID 03/29/18 04/08/18 Review of Systems - Physician Review All systems were reviewed & negative as marked: Yes - Review of Systems Constitutional: absent: Fevers, Other (chills) Respiratory: SOB Cardiovascular: Chest Pain Gastrointestinal: absent: Abdominal Pain, Diarrhea, Nausea, Vomiting Genitourinary Female: absent: Dysuria, Frequency, Hematuria Musculoskeletal: absent: Back Pain, Neck Pain Neurological: absent: Headache, Dizziness Physical Exam Vital Signs Reviewed: Yes Temperature: Afebrile Blood Pressure: Hypertensive Pulse: Regular Respiratory Rate: Normal Appearance: Positive for: Well-Appearing, Non-Toxic, Comfortable Pain Distress: None Mental Status: Positive for: Alert and Oriented X 3 - Systems Exam Head: Present: Atraumatic, Normocephalic Pupils: Present: PERRL Extroacular Muscles: Present: EOMI Conjunctiva: Present: Normal Mouth: Present: Moist Mucous Membranes Respiratory/Chest: Present: Decreased Breath Sounds (bilaterally). No: Respiratory Distress, Accessory Muscle Use, Tachypneic Cardiovascular: Present: Regular Rate and Rhythm, Normal S1, S2. No: Murmurs, Rub, Gallop Abdomen: Present: Normal Bowel Sounds Upper Extremity: Present: Normal Inspection Lower Extremity: Present: Edema (+1 pitting edema) Neurological: Present: GCS=15, Speech Normal Skin: Present: Warm, Dry, Normal Color. No: Rashes Psychiatric: Present: Alert, Oriented x 3, Normal Insight, Normal Concentration Medical Decision Making ED Course and Treatment: 04/08/18 00:06 Impression: 73 year old female presents complaining of chest pressure and shortness of br eath that began 2 hours prior to arrival. Differential Diagnosis included but are not limited to: -- CHF -- Bronchitis -- Arrhythmia Plan: -- Labs -- EKG -- CXR -- Urinalysis -- Reassess and disposition Prior Visits: Notes and results from previous visits were reviewed. Progress Notes: 04/08/18 01:30 Labs reveal a leukocytosis of 15 with shift and elevated BNP at 565. CXR reveals increased interstitial markings. Will treat for presumed respiratory infection given clincal setting. Patient updated on results and accepts plan for admission. Case discussed with Dr. Davenport(PCP) who is aware and agrees with the plan. Accepts patient into his service. - Lab Interpretations Lab Results: 04/08/18 00:20 04/08/18 00:20 Lab Results 04/08/18 01:21: Urine Color Light yellow, Urine Appearance Clear, Urine pH 7.0, Ur Specific [place] 1.015, Urine Protein Negative, Urine Glucose (UA) Negative, Urine Ketones Negative, Urine Blood Trace-intact H, Urine Nitrate Negative, Urine Bilirubin Negative, Urine Urobilinogen 0.2, Ur Leukocyte Esterase Negative, Urine RBC 1 - 3 H, Urine WBC None, Ur Epithelial Cells 0 - 2, Urine Bacteria Few 04/08/18 00:20: Sodium 139, Potassium 3.3 L, Chloride 102, Carbon Dioxide 26, Anion Gap 14, BUN 12, Creatinine 0.6 L, Est GFR ( Amer) > 60, Est GFR (Non-Af Amer) > 60, Random Glucose 141 H, Calcium 8.5, Magnesium 1.7, Total Bilirubin 0.6, AST 32, ALT 35, Alkaline Phosphatase 130 H D, Troponin I < 0.01, NT-Pro-B Natriuret Pep 565 H, Total Protein 7.5, Albumin 4.1, Globulin 3.4, Albumin/Globulin Ratio 1.2 04/08/18 00:20: PT 17.1 H, INR 1.54, APTT 31.3 04/08/18 00:20: WBC 15.4 H, RBC 4.13, Hgb 10.5 L, Hct 33.3 L, MCV 80.6 D, MCH 25.4, MCHC 31.5, RDW 16.1 H, Plt Count 300, MPV 10.6, Neut % (Auto) 85.9 H, Lymph % (Auto) 5.3 L, [place] % (Auto) 8.3 H, Eos % (Auto) 0.1 L, Baso % (Auto) 0.4, Lymph # (Auto) 0.8 L, [place] # (Auto) 1.3 H, Eos # (Auto) 0.0, Baso # (Auto) 0.06, Absolute Neuts (auto) 13.21 H I have reviewed the lab results: Yes - RAD Interpretation Radiology Orders: 04/07/18 23:54 CHEST PORTABLE [RAD] Stat Hand Sign Writer: ED Physician - EKG Interpretation EKG Interpretation (Text): 04/07/18 23:55 EKG shows irregularly irregular at 76 BPM with prolonged QT interval. Interpreted by me Interpreted by ED Physician: Yes Type: 12 lead EKG - Medication Orders Current Medication Orders: 04/09/18 10:02 Acetaminophen (Tylenol 325mg Tab) 650 mg PO Q6H PRN PRN Reason: Headache Last Admin: 04/08/18 22:07 Dose: 650 mg [facility] Pain/Vitals Document 04/08/18 22:07 RS (Rec: 04/08/18 22:07 RS [id number]) Location Pain Location Body Literacy Coordinator Vitals Temperature (97.6 F-99.6 F) 100.7 F Temperature Source Oral Re-Assess: FARTUN Pain/Vitals Document 04/08/18 23:07 RS (Rec: 04/09/18 00:19 RS [id number]) Vitals Temperature (97.6 F-99.6 F) 99.1 F Temperature Source Oral Albuterol/Ipratropium (Duoneb 3 Mg/0.5 Mg (3 Ml) Ud) 3 ml IH Q4H PRN PRN Reason: Shortness of Breath Albuterol/Ipratropium (Duoneb 3 Mg/0.5 Mg (3 Ml) Ud) 3 ml IH TIDRESP JOSHUA Amiodarone HCl (Cordarone) 200 mg PO BID [facility] Last Admin: 04/08/18 17:44 Dose: 200 mg MAR Pulse and Blood Pressure Document 04/08/18 17:44 BK (Rec: 04/08/18 17:44 BK [id number]) Pulse Pulse Rate (60-90 beats/min) 68 Blood Pressure Blood Pressure (100/60-150/90 mm Hg) 141/74 Apixaban (Eliquis) 5 mg PO BID [facility]; Protocol Last Admin: 04/08/18 17:44 Dose: 5 mg Atorvastatin Calcium (Lipitor) 20 mg PO QPM [facility] Last Admin: 04/08/18 17:44 Dose: 20 mg Diltiazem HCl (Cardizem Cd) 180 mg PO BID [facility] Last Admin: 04/08/18 17:43 Dose: 180 mg MAR Pulse and Blood Pressure Document 04/08/18 17:43 BK (Rec: 04/08/18 17:44 BK [id number]) Pulse Pulse Rate (60-90 beats/min) 68 Blood Pressure Blood Pressure (100/60-150/90 mm Hg) 141/74 Doxycycline Hyclate (Doryx) 100 mg PO Q12 JOSHUA; Protocol Stop: 04/17/18 22:01 Last Admin: 04/08/18 21:26 Dose: 100 mg Fluoxetine HCl (Prozac) 20 mg PO DAILY [facility] Last Admin: 04/08/18 09:55 Dose: 20 mg Furosemide (Lasix) 40 mg IV DAILY [facility] Meropenem (Merrem Iv 1 Gm Premix) 1 gm in 50 mls @ 100 mls/hr IVPB Q8 JOSHUA; Protocol Stop: 04/16/18 14:01 Last Admin: 04/09/18 05:09 Dose: 100 mls/hr eMAR Start Stop Document 04/09/18 05:09 RS (Rec: 04/09/18 05:10 RS [id number]) Intravenous Solution Start Date 04/09/18 Start Time 05:09 End Date 04/09/18 End time 05:39 Total Infusion Time 30 Fluticasone Furoate [Arnuity Ellipta] ( Home) 1 puff IH DAILY JOSHUA Ubidecarenone [Coq- 10] 100 Mg (Home Med) 100 mg PO DAILY JOSHUA Pantoprazole Sodium (Protonix Ec Tab) 40 mg PO 0600 JOSHUA Last Admin: 04/09/18 05:09 Dose: 40 mg Potassium Chloride (Potassium Chloride Oral Soln) 20 meq PO DAILY JOSHUA Discontinued Medications Albuterol/Ipratropium (Duoneb 3 Mg/0.5 Mg (3 Ml) Ud) 3 ml IH STAT STA Stop: 04/08/18 22:31 Last Admin: 04/08/18 22:55 Dose: 3 ml Azithromycin (Zithromax) 500 mg PO STAT STA; Protocol Stop: 04/08/18 01:35 Last Admin: 04/08/18 01:52 Dose: 500 mg Ceftriaxone Sodium (Rocephin 1 Gram Ivpb) 1 gm in 100 mls @ 100 mls/hr IVPB STAT STA; Protocol Stop: 04/08/18 02:33 Last Admin: 04/08/18 01:52 Dose: 100 mls/hr eMAR Start Stop Document 04/08/18 01:52 EB (Rec: 04/08/18 01:52 EB [id number]) Intravenous Solution Start Date 04/08/18 Start Time 01:52 Pantoprazole Sodium (Protonix Ec Tab) 40 mg PO ONCE ONE Stop: 04/09/18 11:36 Pantoprazole Sodium (Protonix Ec Tab) 40 mg PO ONCE ONE Stop: 04/08/18 11:49 Last Admin: 04/08/18 12:05 Dose: 40 mg Potassium Chloride (K-Dur 20 Meq Er Tab) 40 meq PO ONCE ONE Stop: 04/08/18 08:06 Last Admin: 04/08/18 08:55 Dose: 40 meq - Scribe Statement The provider has reviewed the documentation as recorded by the Rob Gudino Provider Scribe Attestation: All medical record entries made by the Makenzieibconnie were at my direction and personally dictated by me. I have reviewed the chart and agree that the record accurately reflects my personal performance of the history, physical exam, medical decision making, and the department course for this patient. I have also personally directed, reviewed, and agree with the discharge instructions and disposition. Disposition/Present on Arrival - Present on Arrival Any Indicators Present on Arrival: No History of DVT/PE: No History of Uncontrolled Diabetes: No Urinary Catheter: No History of Decub. Ulcer: No History Surgical Site Infection Following: None - Disposition Have Diagnosis and Disposition been Completed?: Yes Diagnosis: PNA (pneumonia) Disposition: HOSPITALIZED Disposition Time: 01:30 Patient Plan: Admission Condition: GOOD
[2018-04-08 00:34] LABS: BASO # 0.06 K/mm3 (0.0-2.0); BASO % 0.4 % (0.0-3.0); EOS % 0.1 % (1.5-5.0); HEMOGLOBIN 10.5 g/dL (12.0-16.0); LYMPH # 0.8 (1.2-3.4); LYMPH % 5.3 % (22.0-35.0); MEAN CELL VOLUME 80.6 fl (80.0-105.0); MEAN CORPUSCULAR HEMOGLOBIN 25.4 pg (25.0-35.0); MEAN CORPUSCULAR HGB CONC 31.5 g/dl (31.0-37.0); MEAN PLATELET VOLUME 10.6 fl (7.0-11.0); MONO # 1.3 (0.1-0.6); MONO % 8.3 % (1.0-6.0); RBC 4.13 10^6/uL (3.5-6.1); RED CELL DISTRIBUTION WIDTH 16.1 % (11.5-14.5); WHITE BLOOD COUNT 15.4 10^3/uL (4.5-11.0)
[2018-04-08 00:53] LABS: INR 1.54; PARTIAL THROMBOPLASTIN TIME 31.3 Seconds (26.9-38.3); PROTHROMBIN TIME 17.1 SECONDS (9.4-12.5)
[2018-04-08 00:55] LABS: ALB/GLOB RATIO 1.2 (1.1-1.8); ALBUMIN 4.1 g/dL (3.0-4.8); ALT/SGPT 35 U/L (7-56); AST/SGOT 32 U/L (14-36); BLOOD UREA NITROGEN 12 mg/dL (7-21); CALCIUM 8.5 mg/dL (8.4-10.5); GFR NON-AFRICAN AMERICAN > 60
[2018-04-08 01:05] LABS: B-TYPE NATRIURETIC PEPTIDE 565 pg/mL (0-450); TROPONIN I < 0.01 ng/mL
[2018-04-08 01:34] LABS: URINE BILIRUBIN NEGATIVE (NEGATIVE); URINE BLOOD TRACE-INTACT (NEGATIVE); URINE GLUCOSE (UA) NEGATIVE (NEGATIVE); URINE LEUKOCYTE ESTERASE NEGATIVE Leu/uL (NEGATIVE); URINE PROTEIN NEGATIVE mg/dL (<30 mg/dL); URINE UROBILINOGEN 0.2 E.U./dL (<1 E.U./dL)
[2018-04-08] MEDS ORDERED: cefTRIAXone 1 gm 1 GM/100 ML BAG IVPB STA (01:34)
[2018-04-08 01:42] LABS: URINE APPEARANCE CLEAR (CLEAR); URINE COLOR LIGHT YELLOW (YELLOW)
[2018-04-08 02:32] LABS: URINE BACTERIA FEW /hpf; URINE EPITHELIAL CELLS 0 - 2 /hpf (0-5)
[2018-04-08] MEDS ORDERED: Potassium Chloride 20 mEq ER Tab PO ONE (08:05)
--- NOTE | 2018-04-08 08:41 | RAD ---
Date of service: 04/07/2018 HISTORY: chest pressure COMPARISON: 06/22/2017 FINDINGS: LUNGS: No active pulmonary disease. PLEURA: No significant pleural effusion identified, no pneumothorax apparent. CARDIOVASCULAR: No aortic atherosclerotic calcification present. Mild cardiomegaly moderate vascular congestion OSSEOUS STRUCTURES: No significant abnormalities. VISUALIZED UPPER ABDOMEN: Normal. OTHER FINDINGS: None. IMPRESSION: Mild cardiomegaly and moderate vascular congestion
--- NOTE | 2018-04-08 09:21 | HP ---
DATE OF EXAM: 04/08/2018 CHIEF COMPLAINT AND HISTORY OF PRESENT ILLNESS: This is a 73-year-old female who has come in to the hospital because of chest pain. She has a past medical history of hiatal hernia, gastroesophageal reflux disease with Riddle's sleep apnea. She had hypertension. The patient has atrial fibrillation and had a cardioversion on 04/05/[address] Beltran. She came into the hospital because she was having midsternal chest pain and shortness of breath prior to coming to the hospital. She states that she has been eating hot dogs and beans and thought that it may be related to her meals. She has been on her Eliquis for her anticoagulation. The patient says that it was a successful cardioversion by Dr. Beltran. REVIEW OF SYSTEMS: She has no complaints of any headaches. She has no chest pain. Currently she has no nausea or vomiting. She denies any significant cough. She has no weakness in the arms or the legs. No abdominal pain or back pain or dysuria, frequency or nocturia. All other review of symptoms are within normal limits except as mentioned. ALLERGIES: TO ADHESIVE TAPE. HOME MEDICATIONS: Lipitor, fluoxetine, Cardizem, fluticasone, glucosamine and chondroitin, levalbuterol, omeprazole, vitamin E, calcium, vitamin D, Coenzyme Q10, amiodarone. PAST MEDICAL HISTORY: As above. Arthritis, left breast cancer with lumpectomy and radiation. PAST SURGICAL HISTORY: Cholecystectomy, left lumpectomy, right salpingo-oophorectomy. SOCIAL HISTORY: She denies smoking or drinking. FAMILY HISTORY: Noncontributory. PHYSICAL EXAMINATION: VITAL SIGNS: Temperature is 99.4, pulse of 81, blood pressure is 158/76, respiration is 20, O2 saturation 94%. Height is 5 feet 5 inches, weight is 200 pounds, BMI is 33.3. GENERAL: The patient is lying in bed, comfortable, and in no acute distress. HEENT: Atraumatic and normocephalic. Anicteric sclerae. Moist mucosa. [place] conjunctivae. No oral lesions. NECK: No JVD, anterior and posterior adenopathy, thyromegaly, or bruits. CARDIOVASCULAR: S1 and S2 regular. No murmurs, rubs or gallops. LUNGS: Clear to auscultation bilaterally. No wheezes, rales, or rhonchi. ABDOMEN: Bowel sounds are positive. Soft, nontender and nondistended. No hepatosplenomegaly. No rebound and no guarding EXTREMITIES: No cyanosis, clubbing, or edema. NEUROLOGIC: No facial asymmetry. Tongue is midline. No uvula deviation. Power is 5/5 upper extremities and lower extremities. Sensation intact in upper extremities and lower extremities. PSYCHIATRIC: She is awake, alert and oriented x3. No anxiety or depression. She has normal affect. GENITOURINARY: No CVA tenderness. VASCULAR: 2+ pulses in the carotid pulses and pedal pulses. SKIN: No erythema or nodules SPINE: Shows normal curvature. LABORATORY DATA: White count of 15.4, hemoglobin is 10.5, platelet count 300. INR is 1.5. Chemistry shows a potassium of 3.3. The proBNP is 565. Urine shows blood trace, nitrates are negative, esterase is negative. Blood cultures are not done. Chest x-ray, it was reviewed by me and no infiltrates were seen. ASSESSMENT: 1. Possible aspiration pneumonia. 2. Atrial fibrillation, status post cardioversion on Eliquis. 3. Dyslipidemia. 4. Obese with a BMI of 33. 5. AMOXICILLIN ALLERGY. PLAN: The patient is going to be admitted to the hospital. The patient was given Zithromax. I will get ID evaluation and Cardiology evaluation. The patient will need repeat blood work and also the patient has anemia. I will workup her anemia. We will await further input from the consultants. Polo Davenport MD
[2018-04-08] MEDS: diltiaZEM 180 mg/24 Hours CD Cap PO SCH ×2 (09:56→17:43)
[2018-04-08] MEDS ORDERED: FLUTICASONE FUROATE IH SCH (10:00)
[2018-04-08] MEDS ORDERED: Pantoprazole 40 mg EC Tab PO ONE (11:48)
[2018-04-08] MEDS: Meropenem IV 1 gm in NS 1 GM/50 ML BAG IVPB SCH ×2 (13:44→21:26)
[2018-04-08 17:58] LABS: URINE BILIRUBIN NEGATIVE (NEGATIVE); URINE BLOOD NEGATIVE (NEGATIVE); URINE GLUCOSE (UA) NEGATIVE (NEGATIVE); URINE LEUKOCYTE ESTERASE NEGATIVE Leu/uL (NEGATIVE); URINE PROTEIN TRACE mg/dL (<30 mg/dL); URINE UROBILINOGEN 0.2 E.U./dL (<1 E.U./dL)
[2018-04-08 17:59] LABS: URINE APPEARANCE CLEAR (CLEAR); URINE COLOR YELLOW (YELLOW)
--- NOTE | 2018-04-08 18:11 | CON ---
DATE: 04/08/2018 The patient seen earlier today. CHIEF COMPLAINT: Shortness of breath x1 day duration. HISTORY OF PRESENT ILLNESS: This is a 73-year-old female with past medical history significant for breast cancer, GERD, hypertension, hiatal hernia and history of depression, anemia, sleep apnea. The patient had breast cancer 26 years ago, had chemotherapy radiation at that time, had a left lumpectomy at that time and recently diagnosed with atrial fibrillation past Tuesday, which would be approximately 4 days ago. The patient had a cardioversion past Tuesday and now had shortness of breath, low grade fevers, and no fevers, no chills, and no abdominal pain, diarrhea, or constipation. Minimal cough. No headaches or blurred vision. REVIEW OF SYSTEMS: Reveals 12-point review of systems is performed. PAST MEDICAL HISTORY: Past medical history is significant for breast cancer 26 years ago, had chemotherapy and radiation, then gastroesophageal reflux disease, also with hiatal hernia, hypertension, depression, anemia, sleep apnea, on CPAP. PAST SURGICAL HISTORY: Significant for cholecystectomy and a left lumpectomy 26 years ago and the patient also had a salpingo-oophorectomy, also years ago right ovary and right fallopian tubes. ALLERGIES: THE PATIENT STATED TO ME SHE DOES NOT HAVE ANY ALLERGIES TO ANY ANTIBIOTICS; HOWEVER, THE CHART STATES SHE IS ALLERGIC TO TAPE AND AUGMENTIN. MEDICATIONS: The patient's medications are reviewed. PHYSICAL EXAMINATION: GENERAL: The patient is in bed, answering questions appropriately, nontoxic. VITAL SIGNS: Temperature of 99.4, blood pressure is 155/80, respiratory rate of 27, and heart rate of 81. The patient is saturating at 94% with nasal cannula. HEENT: Examination of HEENT is unremarkable. NECK: Supple. LUNGS: Have decreased breath sounds. HEART: Sounds normal S1, S2. ABDOMEN: Soft, nontender. LABORATORY DATA: Laboratory examination reveals the patient's white count of 15,400, hemoglobin of 10, and platelets of 300. Coagulation is noted. Chemistries reveals a BUN of 12, creatinine of 0.6. The BNP is 565. Urinalysis is noted. Microbiology is reviewed and chest x-rays reported to be negative. Emergency room chart is reviewed. ASSESSMENT AND PLAN: This is a 73-year-old female with a past history of breast cancer with chemotherapy and radiation 26 years ago, gastroesophageal reflux disease and hiatal hernia, sleep apnea on CPAP at home, anemia, depression, hypertension, now the patient approximately 4 days ago, had cardioversion because of new-onset atrial fibrillation, presents with shortness of breath, low grade fevers, leukocytosis, hypoxia. Systemic inflammatory response syndrome must rule out healthcare-associated pneumonia in a patient who is allergic to Augmentin. We will start the patient on meropenem, doxycycline, pending blood cultures, urine culture, sputum cultures, nasal MRSA screen, procalcitonin, and CAT scan of the chest and we will make further recommendations upon availability of initial results. Andre Bennett MD [facility] # [id number]
[2018-04-08 21:27] LABS: URINE BACTERIA MOD /hpf
--- NOTE | 2018-04-08 21:41 | CARD ---
APPROVED REPORT Date of service: 04/07/2018 EKG Measurement Heart [id number] <Conclusion> Sinus rhythm with 1st degree AV block Prolonged QT Abnormal ECG
[2018-04-08] MEDS ORDERED: Albuterol-Ipratrop 3 mg / 0.5 (3 ml) UD IH STA (22:30)
[2018-04-08] MEDS ORDERED: Albuterol-Ipratrop 3 mg / 0.5 (3 ml) UD IH PRN (22:31)
--- NOTE | 2018-04-09 01:02 | CON ---
DATE OF CONSULTATION: 04/08/2018 REASON FOR CONSULTATION: Dyspnea. HISTORY: This is a 73-year-old woman, who has a history of paroxysmal atrial fibrillation and underwent a recent electrocardioversion, who presented with complaining of a mid sternal chest discomfort and dyspnea for the past several days. She had eaten hot dogs and beans, which she felt precipitated her chest discomfort. Her dyspnea has been progressive; however, a cardioversion was performed 3 days ago with successful inversion to sinus rhythm from atrial fibrillation. PAST MEDICAL HISTORY: Her past history is notable for gastroesophageal reflux disease, obstructive sleep apnea, hypertension, anxiety disorder, hyperlipidemia. She has had left breast cancer treated with lumpectomy and radiation. She also has a history of chronic arthritis, prior cholecystectomy, and right salpingo-oophorectomy. MEDICATIONS: Her medications at home include amiodarone, Lipitor, Cardizem, omeprazole, and fluoxetine. Eliquis 5 mg b.i.d. SOCIAL HISTORY: She does not smoke or drink. She is , lives with her . FAMILY HISTORY: Unremarkable for premature heart disease. REVIEW OF SYSTEMS: Ten-point review of systems is unremarkable. PHYSICAL EXAMINATION: GENERAL: She is a middle-aged woman, who appears comfortable at rest. VITAL SIGNS: Her blood pressure is 156/70 with a pulse of 70 and sinus, respirations are 14. She is afebrile. HEENT: Normocephalic, atraumatic. NECK: Supple. No JVD noted. CHEST: Bilateral scattered rhonchi heard. HEART: PMI in normal position. No pathological murmurs or gallops noted. ABDOMEN: Soft and nontender with normoactive bowel sounds. EXTREMITIES: No clubbing, cyanosis or edema. SKIN: Warm and dry. PSYCHIATRIC: Normal mood and affect. NEUROLOGIC: Alert and oriented x3. No gross motor or sensory deficits noted. DIAGNOSTIC DATA: Potassium is 3.3 and has been replaced. BUN and creatinine are 12 and 0.6, glucose 141. White count 15.4, hemoglobin and hematocrit are 10.5 and 33.3 with a platelet count of 300,000. BNP 565. Troponin is negative. Electrocardiogram reveals sinus rhythm with nonspecific ST-T abnormalities. Chest x-ray reveals mildly increased cardiac silhouette with mild congestive changes and a right perihilar infiltrate cannot be excluded. IMPRESSION/PLAN: Dyspnea and chest pain. Etiology not completely clear. Does appear to have some mild pulmonary vascular congestion. Given her recent sedation for her cardioversion, the possibility of aspiration pneumonia needs to be considered. She has been started on IV antibiotics for this possibility. IV Lasix will be added to her regimen as well. Thank you for this consultation. We will be happy to follow along through her hospital course and make further recommendations as appropriate. Ander Beltran MD
[2018-04-09] MEDS: Meropenem IV 1 gm in NS 1 GM/50 ML BAG IVPB SCH ×3 (05:09→21:50)
[2018-04-09] MEDS: Pantoprazole 40 mg EC Tab PO SCH (05:09)
[2018-04-09 07:01] LABS: IRON 23 ug/dL (45-180)
[2018-04-09 07:10] LABS: % IRON SATURATION 6 % (20-55); TOTAL IRON BINDING CAPACITY 364 ug/dL (265-497)
[2018-04-09 07:24] LABS: ALB/GLOB RATIO 1.1 (1.1-1.8); ALBUMIN 3.7 g/dL (3.0-4.8); ALT/SGPT 27 U/L (7-56); AST/SGOT 23 U/L (14-36); BLOOD UREA NITROGEN 11 mg/dL (7-21); CALCIUM 8.9 mg/dL (8.4-10.5); GFR NON-AFRICAN AMERICAN > 60
[2018-04-09 08:06] LABS: HEMOGLOBIN 9.8 g/dL (12.0-16.0); MEAN CELL VOLUME 81.5 fl (80.0-105.0); MEAN CORPUSCULAR HEMOGLOBIN 25.1 pg (25.0-35.0); MEAN CORPUSCULAR HGB CONC 30.8 g/dl (31.0-37.0); MEAN PLATELET VOLUME 10.8 fl (7.0-11.0); RBC 3.9 10^6/uL (3.5-6.1); RED CELL DISTRIBUTION WIDTH 16.5 % (11.5-14.5); WHITE BLOOD COUNT 13.9 10^3/uL (4.5-11.0)
--- NOTE | 2018-04-09 08:40 | PN ---
DATE: 04/09/2018 SUBJECTIVE: The patient is seen lying in bed on remote telemetry. She is comfortable. She states she had difficulty last evening with cough and dyspnea. She also had low grade fever 100.7. She remains in normal rhythm. CURRENT MEDICATIONS: Include Cardizem CD 108 mg daily, amiodarone 200 mg twice a day, doxycycline 100 mg twice a day, albuterol inhaler, Eliquis 5 mg twice a day, Lasix 40 mg daily, Lipitor 20 mg daily, meropenem, potassium, Protonix, Prozac. OBJECTIVE: GENERAL: She is a middle-aged woman who appears comfortable at rest. VITAL SIGNS: Blood pressure is 140/74, pulse 68, respirations are 16, current temperature is 99.1. HEENT: No JVD. CHEST: Bilateral scattered rhonchi heard. HEART: PMI displaced laterally with systolic murmur left sternal border. ABDOMEN: Soft, nontender with normoactive bowel sounds. EXTREMITIES: No edema. DIAGNOSTIC DATA: Morning blood work is pending. IMPRESSION: 1. Apparent bronchitis, possible aspiration pneumonia. 2. Mild pulmonary vascular congestion on IV Lasix. 3. Paroxysmal atrial fibrillation status post recent cardioversion currently in sinus rhythm. RECOMMENDATIONS: Current treatment should continue for now. IV Lasix will be switched to oral administration in the morning assuming she continues to improve. Continue respiratory therapy and antibiotics as advised. We will continue to follow and make further recommendations as appropriate. Ander Beltrna MD [facility]
--- NOTE | 2018-04-09 10:31 | CT ---
Date of service: 04/08/2018 PROCEDURE: CT Chest without contrast HISTORY: r/o pna COMPARISON: None available. TECHNIQUE: Contiguous axial images were obtained through the chest without intravenous contrast enhancement. Sagittal and coronal reconstructions were performed. Radiation dose: Total exam DLP = 662.6 mGy-cm. This CT exam was performed using one or more of the following dose reduction techniques: Automated exposure control, adjustment of the mA and/or kV according to patient size, and/or use of iterative reconstruction technique. FINDINGS: LUNGS: Perihilar infiltrates are seen right greater than left. This could be due to either CHF or pneumonia. Clinical correlation is suggested. MEDIASTINUM: Unremarkable thoracic aorta. No aneurysm. Normal sized heart. Main pulmonary artery unremarkable. No vascular congestion. No lymphadenopathy. No aortic atherosclerotic calcification. PLEURA: Small pleural effusions BONES: No fracture. No destructive lesion. UPPER ABDOMEN: Gallbladder removed. OTHER FINDINGS: The report concurs with the preliminary [facility] report IMPRESSION: Perihilar infiltrates are seen right greater than left. This could be due to either CHF or pneumonia. Clinical correlation is suggested.
[2018-04-09] MEDS: diltiaZEM 180 mg/24 Hours CD Cap PO SCH ×2 (10:36→18:25)
[2018-04-09] MEDS: Potassium Chloride 20 mEq/15 ml LIQ UD PO SCH (10:38)
[2018-04-09] MEDS ORDERED: FLUTICASONE FUROATE IH SCH (10:51)
[2018-04-09] MEDS ORDERED: Pantoprazole 40 mg EC Tab PO ONE (11:35)
[2018-04-09 12:30] LABS: FERRITIN 30.2 ng/mL
[2018-04-09] MEDS: Albuterol-Ipratrop 3 mg / 0.5 (3 ml) UD IH SCH ×2 (12:55→19:31)
--- NOTE | 2018-04-09 13:37 | PN ---
DATE: 04/09/2018 SUBJECTIVE: The patient has no complaints of any chest pain, no shortness of breath. She says her breathing is better. Overnight, she had another episode last night and required DuoNeb treatments for shortness of breath. PHYSICAL EXAMINATION: VITAL SIGNS: Temperature is 98.8, pulse is 69, blood pressure 140/83, respiration 20. GENERAL: The patient is lying in bed, flat, comfortable. HEENT: No oral lesion. Anicteric sclerae. Moist mucosa. NECK: No JVD, adenopathy, or thyromegaly. CARDIOVASCULAR: S1 and S2, regular. No murmurs, rubs, or gallops. LUNGS: Clear to auscultation bilaterally. No wheeze, rales, or rhonchi. ABDOMEN: Bowel sounds are positive, soft, nontender and nondistended. EXTREMITIES: no cyanosis, clubbing or edema. LABORATORY DATA: White count of 13.9, hemoglobin 9.8, creatinine is 0.7. ASSESSMENT: 1. Possible aspiration pneumonia versus hospital-acquired pneumonia. 2. Atrial fibrillation, status post cardioversion, on Eliquis. 3. Dyslipidemia. 4. Obesity with a body mass index of 33. 5. AMOXICILLIN ALLERGY. PLAN: The patient is going have a CAT scan, it was done and results are pending. The patient is currently on nebulizer treatments. She is on Eliquis for anticoagulation. For the atrial fibrillation, she is on Lasix daily. The patient is on Lipitor for dyslipidemia. She is on meropenem for antibiotics. She is going to continue with Protonix. She is on heart-healthy diet. She said she is feeling better. Polo Davenport MD
[2018-04-09] MEDS: UBIDECARENONE 100 MG PO SCH (14:07)
--- NOTE | 2018-04-09 16:49 | CP.PCM.PN ---
Subjective - Date & Time of Evaluation Date of Evaluation: 04/09/18 Time of Evaluation: 10:15 - Subjective Subjective: Not in distress, afebrile. Objective - Vital Signs/Intake and Output Vital Signs (last 24 hours): Temp Pulse Resp BP Pulse Ox 98.8 F 69 20 140/83 96 04/09/18 07:51 04/09/18 07:51 04/09/18 13:59 04/09/18 10:37 04/09/18 13:59 Intake and Output: 04/09/18 04/09/18 06:59 18:59 Intake Total 420 Balance 420 - Medications Medications: Current Medications Acetaminophen (Tylenol 325mg Tab) 650 mg PO Q6H PRN PRN Reason: Headache Last Admin: 04/09/18 13:05 Dose: 650 mg Albuterol/Ipratropium (Duoneb 3 Mg/0.5 Mg (3 Ml) Ud) 3 ml IH Q4H PRN PRN Reason: Shortness of Breath Albuterol/Ipratropium (Duoneb 3 Mg/0.5 Mg (3 Ml) Ud) 3 ml IH TIDRESP [facility] Last Admin: 04/09/18 12:55 Dose: 3 ml Amiodarone HCl (Cordarone) 200 mg PO BID [facility] Last Admin: 04/09/18 10:37 Dose: 200 mg Apixaban (Eliquis) 5 mg PO BID [facility]; Protocol Last Admin: 04/09/18 10:37 Dose: 5 mg Atorvastatin Calcium (Lipitor) 20 mg PO QPM [facility] Last Admin: 04/08/18 17:44 Dose: 20 mg Diltiazem HCl (Cardizem Cd) 180 mg PO BID [facility] Last Admin: 04/09/18 10:36 Dose: 180 mg Doxycycline Hyclate (Doryx) 100 mg PO Q12 [facility]; Protocol Stop: 04/17/18 22:01 Last Admin: 04/09/18 10:52 Dose: 100 mg Fluoxetine HCl (Prozac) 20 mg PO DAILY [facility] Last Admin: 04/09/18 10:36 Dose: 20 mg Furosemide (Lasix) 40 mg IV DAILY [facility] Last Admin: 04/09/18 10:37 Dose: 40 mg Meropenem (Merrem Iv 1 Gm Premix) 1 gm in 50 mls @ 100 mls/hr IVPB Q8 [facility]; Protocol Stop: 04/16/18 14:01 Last Admin: 04/09/18 15:19 Dose: 100 mls/hr Ubidecarenone [Coq- 10] 100 Mg (Home Med) 100 mg PO DAILY [facility] Last Admin: 04/09/18 14:07 Dose: Not Given Fluticasone Furoate [Arnuity Ellipta] ( Home) 1 puff IH DAILY [facility] Pantoprazole Sodium (Protonix Ec Tab) 40 mg PO 0600 [facility] Last Admin: 04/09/18 05:09 Dose: 40 mg Potassium Chloride (Potassium Chloride Oral Soln) 20 meq PO DAILY [facility] Last Admin: 04/09/18 10:38 Dose: 20 meq - Labs Labs: 04/09/18 06:00 04/09/18 06:00 PT 17.1 SECONDS (9.4-12.5) H 04/08/18 00:20 INR 1.54 04/08/18 00:20 APTT 31.3 Seconds (26.9-38.3) 04/08/18 00:20 - Constitutional Appears: Chronically Ill - Head Exam Head Exam: NORMAL INSPECTION - Respiratory Exam Respiratory Exam: Decreased Breath Sounds - Cardiovascular Exam Cardiovascular Exam: +S1, +S2 - GI/Abdominal Exam GI & Abdominal Exam: Soft. absent: Tenderness Assessment and Plan - Assessment and Plan (Free Text) Plan: Assessment SIRS R/O sepsis due to HCAP atrial fibrillation breast cancer S/P left lumpectomy GERD hiatal hernia HTN depression chronic anemia sleep apnea on CPAP S/P cholecystectomy S/P salpingo-oophorectomy Plan continue Doxycycline and Merrem day 2 and follow up final cultures; PCT is <0.05 follow up rapid Influenza test will continue to monitor clinically
[2018-04-10 00:42] VITALS: RESP 20
[2018-04-10] MEDS: Meropenem IV 1 gm in NS 1 GM/50 ML BAG IVPB SCH ×3 (05:19→21:07)
[2018-04-10] MEDS: Pantoprazole 40 mg EC Tab PO SCH (05:19)
[2018-04-10] MEDS: Albuterol-Ipratrop 3 mg / 0.5 (3 ml) UD IH SCH ×3 (08:28→19:55)
[2018-04-10] MEDS: diltiaZEM 180 mg/24 Hours CD Cap PO SCH ×2 (09:44→18:13)
[2018-04-10] MEDS: Potassium Chloride 20 mEq/15 ml LIQ UD PO SCH (09:45)
[2018-04-10] MEDS: UBIDECARENONE 100 MG PO SCH (09:54)
--- NOTE | 2018-04-10 10:13 | CON ---
DATE: 04/10/2018 PULMONARY CONSULTATION REFERRING PHYSICIAN: Dr. Davenport REASON FOR PULMONARY CONSULTATION: Pneumonia. The patient is a 73-year-old female, with past medical history significant for chronic obstructive pulmonary disease, obstructive sleep apnea (on CPAP), hiatal hernia, gastroesophageal reflux disease, paroxysmal atrial fibrillation, status post electrical cardioversion, who presents to [facility] with a one-day history of increasing shortness of breath at rest and dyspnea on exertion. The patient denies cough or sputum production. The patient also denies chest pain, coughing up of blood, or chest pain - brought on with deep respirations. The patient does state to chest "pressure" the day of admission - now resolved. The patient did have temperatures on 04/08/2018 (100.7). These temperatures have now resolved. No history of chills or infectious exposure. No history of night sweats, weight loss or appetite change prior to the above events. No history of calf pains. No history of syncope or diaphoresis. No history of recent travel or trauma. REVIEW OF SYSTEMS: No history of nausea, vomiting or diarrhea. No acute urinary symptoms. No new neurologic complaints. Rest of the review of systems is negative. ALLERGIES: TO AMOXICILLIN. SOCIAL HISTORY: Positive for former tobacco usage. No alcohol. FAMILY HISTORY: No inheritable diseases. HOME MEDICATIONS: Include levalbuterol, Arnuity Ellipta, Cardizem, Lipitor, Eliquis, Cordarone. PHYSICAL EXAMINATION: GENERAL: The patient appears quite comfortable this morning. She is not short of breath at rest. VITALS: Temperature is 99.1, pulse 79, respirations 18/20, blood pressure 142/69. Oxygen saturation on nasal cannula is 99%. HEENT: Normocephalic, atraumatic. No JVD. CARDIOVASCULAR: Systolic ejection murmur at the lower left sternal border. Questionable S3 gallop. LUNGS: Minimal crackles at both bases. Minimal rhonchi. No wheezing. EXTREMITIES: Mild edema. No cyanosis, no clubbing. Calves are nontender to palpation. GASTROINTESTINAL: Abdomen is soft, nontender, nondistended. Bowel sounds are positive. SKIN: No acute rash. NEUROLOGIC: Exam limited at the present time. PERTINENT LABORATORY DATA: CAT scan of the chest was done on 04/08/2018 and reviewed. There are bilateral perihilar infiltrates (right worse than left) - which could represent either congestive heart failure or pneumonia. There are also small bilateral pleural effusions. CBC: White count 13.9K, hemoglobin 9.8, hematocrit 31.8, platelets of 290,000. Complete metabolic profile: Glucose 113. Rest of the metabolic profile is within normal limits. Initial B-type natriuretic peptide 565. IMPRESSION: 1. Possible perihilar pneumonia, consider atypical. 2. Mild congestive heart failure. 3. Bilateral pleural effusions. 4. Chronic obstructive pulmonary disease. 5. Obstructive sleep apnea. PLAN: The patient presents to [facility] with a one-day history of increasing shortness of breath at rest and dyspnea on exertion. She also stated to chest "pressure."--resolved She offers no other pulmonary symptoms. She was thus admitted for additional evaluation. I did review the chest x-ray and CAT scan of the chest. There are perihilar infiltrates noted. Again, these may be consistent with pneumonia or congestive heart failure. There are also bilateral pleural effusions. The bilateral pleural effusions lend to the idea that there is some element of congestive heart failure. As above, the patient did have low-grade temperatures a few days ago. These temperatures have now resolved. In addition, the leukocytosis is also now resolving. I would continue with the antibiotic coverage as per Infectious Disease - especially the atypical coverage. Input by Dr. Beltran (Cardiology) is also noted. The patient remains on intravenous Lasix. On physical exam, there is no significant bronchospasm. In addition, there is no significant alveolar-arterial gradient. I will continue the current pulmonary medications for now. The patient does state to feeling much better this morning - compared to her initial presentation. She is clinically much improved. Additional Pulmonary intervention will be based on the clinical status of the patient. I will discuss the above with Dr. Davenport. Thank you very much for this pulmonary consultation. Jaydon Ugalde MD [facility]
[2018-04-10] MEDS: Potassium Chloride 20 mEq ER Tab PO SCH (10:45)
--- NOTE | 2018-04-10 13:00 | CP.PCM.PN ---
<Noah Sawyer - Last Filed: 04/10/18 12:54> Subjective - Date & Time of Evaluation Date of Evaluation: 04/10/18 Time of Evaluation: 07:40 - Subjective Subjective: Medicine progress note for Dr Davenport: Patient seen and examined at bedside. No acute events overnight. Patient still complains of some shortness of breath however denies any chest pain at this time. No other complaints. 12 point ROS performed and negative other than stated above. Objective - Vital Signs/Intake and Output Vital Signs (last 24 hours): Temp Pulse Resp BP Pulse Ox 98.2 F 65 20 143/79 97 04/10/18 08:01 04/10/18 08:01 04/10/18 08:01 04/10/18 09:44 04/10/18 08:01 Intake and Output: 04/10/18 04/10/18 06:59 18:59 Intake Total 360 Balance 360 - Medications Medications: Current Medications Acetaminophen (Tylenol 325mg Tab) 650 mg PO Q6H PRN PRN Reason: Headache Last Admin: 04/10/18 00:40 Dose: 650 mg Albuterol/Ipratropium (Duoneb 3 Mg/0.5 Mg (3 Ml) Ud) 3 ml IH Q4H PRN PRN Reason: Shortness of Breath Albuterol/Ipratropium (Duoneb 3 Mg/0.5 Mg (3 Ml) Ud) 3 ml IH TIDRESP [facility] Last Admin: 04/10/18 08:28 Dose: 3 ml Amiodarone HCl (Cordarone) 200 mg PO BID [facility] Last Admin: 04/10/18 09:44 Dose: 200 mg Apixaban (Eliquis) 5 mg PO BID [facility]; Protocol Last Admin: 04/10/18 09:44 Dose: 5 mg Atorvastatin Calcium (Lipitor) 20 mg PO QPM [facility] Last Admin: 04/09/18 18:25 Dose: 20 mg Diltiazem HCl (Cardizem Cd) 180 mg PO BID [facility] Last Admin: 04/10/18 09:44 Dose: 180 mg Doxycycline Hyclate (Doryx) 100 mg PO Q12 [facility]; Protocol Stop: 04/17/18 22:01 Last Admin: 04/10/18 09:44 Dose: 100 mg Ferrous Sulfate (Feosol) 324 mg PO BID [facility] Fluoxetine HCl (Prozac) 20 mg PO DAILY [facility] Last Admin: 04/10/18 09:44 Dose: 20 mg Furosemide (Lasix) 40 mg IV DAILY [facility] Last Admin: 04/10/18 09:44 Dose: 40 mg Meropenem (Merrem Iv 1 Gm Premix) 1 gm in 50 mls @ 100 mls/hr IVPB Q8 [facility]; Protocol Stop: 04/16/18 14:01 Last Admin: 04/10/18 05:19 Dose: 100 mls/hr Ubidecarenone [Coq- 10] 100 Mg (Home Med) 100 mg PO DAILY [facility] Last Admin: 04/10/18 09:54 Dose: Not Given Fluticasone Furoate [Arnuity Ellipta] ( Home) 1 puff IH DAILY [facility] Last Admin: 04/10/18 09:53 Dose: Not Given Pantoprazole Sodium (Protonix Ec Tab) 40 mg PO 0600 [facility] Last Admin: 04/10/18 05:19 Dose: 40 mg Polyethylene Glycol (Miralax) 17 gm PO BID [facility] Potassium Chloride (K-Dur 20 Meq Er Tab) 20 meq PO BRK [facility] Last Admin: 04/10/18 10:45 Dose: 20 meq - Labs Labs: 04/09/18 06:00 04/09/18 06:00 PT 17.1 SECONDS (9.4-12.5) H 04/08/18 00:20 INR 1.54 04/08/18 00:20 APTT 31.3 Seconds (26.9-38.3) 04/08/18 00:20 - Constitutional Appears: No Acute Distress - Head Exam Head Exam: ATRAUMATIC, NORMOCEPHALIC - Eye Exam Eye Exam: EOMI - ENT Exam ENT Exam: Mucous Membranes Moist - Respiratory Exam Respiratory Exam: Clear to Ausculation Bilateral. absent: Rales, Wheezes - Cardiovascular Exam Cardiovascular Exam: REGULAR RHYTHM, RRR, +S1, +S2 - GI/Abdominal Exam GI & Abdominal Exam: Soft. absent: Tenderness - Extremities Exam Extremities Exam: absent: Calf Tenderness, Pedal Edema - Neurological Exam Neurological Exam: Alert, Awake, Oriented x3 - Psychiatric Exam Psychiatric exam: Normal Mood - Skin Skin Exam: Dry, Warm Assessment and Plan - Assessment and Plan (Free Text) Assessment: 1. Hospital acquired pneumonia 2. Atrial fibrillation status post cardioversion 04/05/18 3. Hyperlipidemia 4. Obesity BMI of 33 5. Iron def Anemia 6. Hx of GERD 7. Penicillin allergy Continue with doxycycline and meropenem as per infectious disease. CT scan of the chest showed perihilar infiltrate consistent with CHF and/or pneumonia. Chest x-ray showing moderate vascular congestion. Patient was started on ferrous sulfate and MiraLAX for her anemia. Continue with Eliquis, Cardizem, and amiodarone for her atrial fibrillation. Follow-up cardiology recommendations. Follow-up echocardiogram ordered. Continue with Lasix 40 mg IV push daily. Follow-up further septic workup, procalcitonin negative. Continue Protonix for her GERD. Continue to monitor for any changes. Case and plan was reviewed and discussed with Dr. Davenport. <Polo Davenport S - Last Filed: 04/10/18 20:25> Objective - Vital Signs/Intake and Output Vital Signs (last 24 hours): Temp Pulse Resp BP Pulse Ox 99.2 F 79 20 145/65 93 L 04/10/18 17:58 04/10/18 17:58 04/10/18 17:58 04/10/18 17:58 04/10/18 17:58 Intake and Output: 04/10/18 04/11/18 18:59 06:59 Intake Total 1000 Balance 1000 - Medications Medications: Current Medications Acetaminophen (Tylenol 325mg Tab) 650 mg PO Q6H PRN PRN Reason: Headache Last Admin: 04/10/18 00:40 Dose: 650 mg Albuterol/Ipratropium (Duoneb 3 Mg/0.5 Mg (3 Ml) Ud) 3 ml IH Q4H PRN PRN Reason: Shortness of Breath Albuterol/Ipratropium (Duoneb 3 Mg/0.5 Mg (3 Ml) Ud) 3 ml IH TIDRESP [facility] Last Admin: 04/10/18 19:55 Dose: 3 ml Amiodarone HCl (Cordarone) 200 mg PO BID [facility] Last Admin: 04/10/18 18:13 Dose: 200 mg Apixaban (Eliquis) 5 mg PO BID [facility]; Protocol Last Admin: 04/10/18 18:13 Dose: 5 mg Atorvastatin Calcium (Lipitor) 20 mg PO QPM [facility] Last Admin: 04/10/18 18:13 Dose: 20 mg Diltiazem HCl (Cardizem Cd) 180 mg PO BID [facility] Last Admin: 04/10/18 18:13 Dose: 180 mg Doxycycline Hyclate (Doryx) 100 mg PO Q12 [facility]; Protocol Stop: 04/17/18 22:01 Last Admin: 04/10/18 09:44 Dose: 100 mg Ferrous Sulfate (Feosol) 324 mg PO BID [facility] Last Admin: 04/10/18 18:13 Dose: 324 mg Fluoxetine HCl (Prozac) 20 mg PO DAILY [facility] Last Admin: 04/10/18 09:44 Dose: 20 mg Furosemide (Lasix) 40 mg IV DAILY [facility] Last Admin: 04/10/18 09:44 Dose: 40 mg Meropenem (Merrem Iv 1 Gm Premix) 1 gm in 50 mls @ 100 mls/hr IVPB Q8 [facility]; Pr otocol Stop: 04/16/18 14:01 Last Admin: 04/10/18 13:09 Dose: 100 mls/hr Ubidecarenone [Coq- 10] 100 Mg (Home Med) 100 mg PO DAILY [facility] Last Admin: 04/10/18 09:54 Dose: Not Given Fluticasone Furoate [Arnuity Ellipta] ( Home) 1 puff IH DAILY [facility] Last Admin: 04/10/18 09:53 Dose: Not Given Pantoprazole Sodium (Protonix Ec Tab) 40 mg PO 0600 [facility] Last Admin: 04/10/18 05:19 Dose: 40 mg Polyethylene Glycol (Miralax) 17 gm PO BID [facility] Last Admin: 04/10/18 18:14 Dose: Not Given Potassium Chloride (K-Dur 20 Meq Er Tab) 20 meq PO BRK [facility] Last Admin: 04/10/18 10:45 Dose: 20 meq - Labs Labs: 04/09/18 06:00 04/09/18 06:00 PT 17.1 SECONDS (9.4-12.5) H 04/08/18 00:20 INR 1.54 04/08/18 00:20 APTT 31.3 Seconds (26.9-38.3) 04/08/18 00:20 Assessment and Plan - Assessment and Plan (Free Text) Assessment: Pt seen and examined by me. I have reviewed the note of the medical office asst and I agree with it. I have discussed the assessment and plan with the resident. I have reviewed the medications and the last labs. Pt with HCAP and is on IV Abx. I reviewed the CT scan of the chest and saw the infiltrates. The report confirms the pneumonia. Will continue with Miralax for constipation. Will continue with Eliquis for A fib. She is also on Amiodarone for A fib.
[2018-04-10] MEDS: POLYETHYLENE GLYCOL 3350 17 GM/Dose PACKET PO SCH ×2 (13:08→18:14)
--- NOTE | 2018-04-10 14:00 | CP.PCM.PN ---
Subjective - Date & Time of Evaluation Date of Evaluation: 04/10/18 Time of Evaluation: 11:50 - Subjective Subjective: Patient is feeling better, no fevers, no cough, not in distress. Objective - Vital Signs/Intake and Output Vital Signs (last 24 hours): Temp Pulse Resp BP Pulse Ox 98.8 F 69 20 140/83 96 04/09/18 07:51 04/09/18 07:51 04/09/18 13:59 04/09/18 10:37 04/09/18 13:59 Intake and Output: 04/09/18 04/09/18 06:59 18:59 Intake Total 420 Balance 420 - Medications Medications: Current Medications Acetaminophen (Tylenol 325mg Tab) 650 mg PO Q6H PRN PRN Reason: Headache Last Admin: 04/09/18 13:05 Dose: 650 mg Albuterol/Ipratropium (Duoneb 3 Mg/0.5 Mg (3 Ml) Ud) 3 ml IH Q4H PRN PRN Reason: Shortness of Breath Albuterol/Ipratropium (Duoneb 3 Mg/0.5 Mg (3 Ml) Ud) 3 ml IH TIDRESP [facility] Last Admin: 04/09/18 12:55 Dose: 3 ml Amiodarone HCl (Cordarone) 200 mg PO BID [facility] Last Admin: 04/09/18 10:37 Dose: 200 mg Apixaban (Eliquis) 5 mg PO BID [facility]; Protocol Last Admin: 04/09/18 10:37 Dose: 5 mg Atorvastatin Calcium (Lipitor) 20 mg PO QPM [facility] Last Admin: 04/08/18 17:44 Dose: 20 mg Diltiazem HCl (Cardizem Cd) 180 mg PO BID [facility] Last Admin: 04/09/18 10:36 Dose: 180 mg Doxycycline Hyclate (Doryx) 100 mg PO Q12 [facility]; Protocol Stop: 04/17/18 22:01 Last Admin: 04/09/18 10:52 Dose: 100 mg Fluoxetine HCl (Prozac) 20 mg PO DAILY [facility] Last Admin: 04/09/18 10:36 Dose: 20 mg Furosemide (Lasix) 40 mg IV DAILY [facility] Last Admin: 04/09/18 10:37 Dose: 40 mg Meropenem (Merrem Iv 1 Gm Premix) 1 gm in 50 mls @ 100 mls/hr IVPB Q8 [facility]; Protocol Stop: 04/16/18 14:01 Last Admin: 04/09/18 15:19 Dose: 100 mls/hr Ubidecarenone [Coq- 10] 100 Mg (Home Med) 100 mg PO DAILY [facility] Last Admin: 04/09/18 14:07 Dose: Not Given Fluticasone Furoate [Arnuity Ellipta] ( Home) 1 puff IH DAILY [facility] Pantoprazole Sodium (Protonix Ec Tab) 40 mg PO 0600 [facility] Last Admin: 04/09/18 05:09 Dose: 40 mg Potassium Chloride (Potassium Chloride Oral Soln) 20 meq PO DAILY [facility] Last Admin: 04/09/18 10:38 Dose: 20 meq - Labs Labs: 04/09/18 06:00 04/09/18 06:00 PT 17.1 SECONDS (9.4-12.5) H 04/08/18 00:20 INR 1.54 04/08/18 00:20 APTT 31.3 Seconds (26.9-38.3) 04/08/18 00:20 - Constitutional Appears: Chronically Ill - Head Exam Head Exam: NORMAL INSPECTION - Respiratory Exam Respiratory Exam: Decreased Breath Sounds - Cardiovascular Exam Cardiovascular Exam: +S1, +S2 - GI/Abdominal Exam GI & Abdominal Exam: Soft. absent: Tenderness Assessment and Plan - Assessment and Plan (Free Text) Plan: Assessment SIRS R/O sepsis due to HCAP atrial fibrillation breast cancer S/P left lumpectomy GERD hiatal hernia HTN depression chronic anemia sleep apnea on CPAP S/P cholecystectomy S/P salpingo-oophorectomy Plan continue Doxycycline and Merrem day 3 for 4-7 days; if cultures continue to be negative, may d/c Merrem by tomorrow and complete course with Doxycycline; PCT is <0.05 rapid Influenza test is negative will continue to monitor clinically
--- NOTE | 2018-04-10 22:08 | PN ---
DATE: 04/10/2018 SUBJECTIVE: The patient is seen lying in bed on remote telemetry. She is feeling somewhat better. Dyspnea is improved. Her cough is improved as well. PHYSICAL EXAMINATION GENERAL: She is a middle-aged woman, appears comfortable at rest. VITAL SIGNS: Blood pressure is 140/80 with a pulse of 66, respirations are 16. She is afebrile. NECK: No JVD. CHEST: Bilateral scattered rhonchi. HEART: PMI displaced laterally with systolic murmur at the left sternal border and apex. ABDOMEN: Soft, nontender with bowel sounds. EXTREMITIES: No edema. DIAGNOSTIC DATA: Influenza serology is negative. MEDICATIONS: Include Cardizem 180 mg daily, amiodarone 200 mg b.i.d., doxycycline, albuterol inhaler, Eliquis 5 mg b.i.d., Lasix 40 mg daily, potassium 20 mEq daily, Lipitor 20 mg daily, meropenem, Protonix, Prozac. IMPRESSION: 1. Apparent bronchitis, possible recent aspiration pneumonia. 2. Paroxysmal atrial fibrillation, status post recent cardioversion remains in sinus rhythm. 3. Mitral regurgitation. 4. Mild pulmonary vascular congestion. RECOMMENDATIONS: Antibiotic therapy will continue for now. IV Lasix will be continued as well. Given her recent symptoms, an echocardiogram will be performed as well. We will continue to follow and make further recommendations as appropriate. Ander Beltran MD MTDD
[2018-04-11] MEDS: Pantoprazole 40 mg EC Tab PO SCH (06:01)
[2018-04-11] MEDS: Meropenem IV 1 gm in NS 1 GM/50 ML BAG IVPB SCH (06:01)
[2018-04-11 06:29] LABS: HEMOGLOBIN 9.5 g/dL (12.0-16.0); MEAN CELL VOLUME 81.9 fl (80.0-105.0); MEAN CORPUSCULAR HEMOGLOBIN 25.3 pg (25.0-35.0); MEAN CORPUSCULAR HGB CONC 30.9 g/dl (31.0-37.0); MEAN PLATELET VOLUME 10.7 fl (7.0-11.0); RBC 3.75 10^6/uL (3.5-6.1); RED CELL DISTRIBUTION WIDTH 16.6 % (11.5-14.5); WHITE BLOOD COUNT 10.6 10^3/uL (4.5-11.0)
[2018-04-11 06:58] LABS: ALBUMIN 3.4 g/dL (3.0-4.8); ALT/SGPT 25 U/L (7-56); AST/SGOT 34 U/L (14-36); BLOOD UREA NITROGEN 15 mg/dL (7-21); CALCIUM 8.9 mg/dL (8.4-10.5); GFR NON-AFRICAN AMERICAN > 60
[2018-04-11] MEDS: Albuterol-Ipratrop 3 mg / 0.5 (3 ml) UD IH SCH (07:45)
[2018-04-11 08:12] VITALS: BP 152/75; PULSE 67; TEMP 98.2; O2SAT 96
--- NOTE | 2018-04-11 09:13 | PN ---
DATE: 04/11/2018 PULMONARY NOTE SUBJECTIVE: The patient appears quite comfortable this morning. She is not short of breath at rest. PHYSICAL EXAMINATION: VITALS: Temperature is 98.1, pulse 75, respirations 18, blood pressure 137/70. Oxygen saturation on room air is 95% (done this morning). HEENT: Normocephalic, atraumatic. No JVD. CARDIOVASCULAR: Systolic ejection murmur at the lower left sternal border. Questionable S3 gallop. LUNGS: Minimal crackles at the bases. Minimal/less rhonchi. No wheezing. EXTREMITIES: Mild edema. No cyanosis, no clubbing. Calves are nontender to palpation. GASTROINTESTINAL: Abdomen is soft, nontender, and nondistended. Bowel sounds are positive. SKIN: No acute rash. NEUROLOGIC: Exam limited at the present time. IMPRESSION: 1. Possible perihilar pneumonia, consider atypical. 2. Mild congestive heart failure. 3. Bilateral pleural effusions. 4. Chronic obstructive pulmonary disease. 5. Obstructive sleep apnea. PLAN: The patient appears very comfortable this morning. She is not short of breath at rest. She does state to feeling much better overall. On physical exam, there is no significant bronchospasm noted. In addition, the oxygen saturation on room air this morning is 95%. I will continue the current nebulizer treatments for now. I would continue with the antibiotic coverage as per Infectious Disease. Input by Dr. Zepeda is noted. The temperatures have now fully resolved. The leukocytosis has also fully resolved. I would continue with the treatment for congestive heart failure as per Cardiology. Input by Dr. Beltran is noted. The patient remains on intravenous Lasix. Clinical status of the patient is significantly improved overall. I will discuss the above with Dr. Davenport. Jaydon Ugalde MD MTDBj
[2018-04-11] MEDS: Potassium Chloride 20 mEq ER Tab PO SCH (09:46)
[2018-04-11] MEDS: diltiaZEM 180 mg/24 Hours CD Cap PO SCH (09:47)
[2018-04-11] MEDS: UBIDECARENONE 100 MG PO SCH (09:48)
[2018-04-11] MEDS: POLYETHYLENE GLYCOL 3350 17 GM/Dose PACKET PO SCH (09:48)
--- NOTE | 2018-04-11 10:07 | CARD ---
APPROVED REPORT Date of service: 04/10/2018 EXAM: Two-dimensional and M-mode echocardiogram with Doppler and color Doppler. INDICATION Dyspnea 2D DIMENSIONS Left Atrium (2D)4.5 (1.6-4.0cm)IVSd1.1 (0.7-1.1cm) LVDd4.9 (3.9-5.9cm)PWd1.0 (0.7-1.1cm) LVDs2.9 (2.5-4.0cm)FS (%) 41.9 % LVEF (%)72.7 (>50%) M-Mode DIMENSIONS Aortic Root3.00 (2.2-3.7cm)Aortic Cusp Exc.1.70 (1.5-2.0cm) Aortic Valve AoV Peak Ldpolwjo323.0cm/sAoV VTI45.3cmAO Peak GR.22mmHg AO Mean GR.11mmHgAI P 1/2 [id number] Mitral Valve MV E Zpfiqngl381.0cm/sMV A Gtdjmown02.3cm/sE/A ratio2.0 TDI Lateral E' Peak V13.20cm/sMedial E' Peak V9.85cm/sE/Lateral E'11.0 E/Medial E'14.7 Pulmonary Valve PV Peak Leduoypr618.0cm/sPV Peak Grad.4mmHg Tricuspid Valve TR Peak [id number]/sRAP [id number] Peak Gr.83mmHg [id number] LEFT VENTRICLE The left ventricle is normal size. There is normal left ventricular wall thickness. The left ventricular function is normal. The left ventricular ejection fraction is within the normal range. There is normal LV segmental wall motion. RIGHT VENTRICLE The right ventricle is normal size. The right ventricular systolic function is normal. ATRIA The left atrium is mildly dilated. The right atrium is mildly dilated. The interatrial septum is intact with no evidence for an atrial septal defect. AORTIC VALVE The aortic valve is mildly sclerotic. There is mild aortic regurgitation. There is no aortic valvular stenosis. MITRAL VALVE Mitral annular calcification is moderate. Mitral regurgitation is moderate. TRICUSPID VALVE The tricuspid valve is normal in structure. There is severe tricuspid regurgitation. There is severe pulmonary hypertension. PULMONIC VALVE The pulmonary valve is normal in structure. GREAT VESSELS The aortic root is normal in size. The IVC is normal in size and collapses >50% with inspiration. PERICARDIAL EFFUSION There is no pleural effusion. There is no pericardial effusion. <Conclusion> Biatrial enlargement. Normal LV size and systolic function. Moderate MR. Mild AI. Severe TR. Severe pulmonary HTN with RVSP of 96 mm Hg recorded.
--- NOTE | 2018-04-11 11:32 | CP.PCM.DIS ---
<Noah Sawyer - Last Filed: 04/11/18 11:32> Provider - Provider Date of Admission: 04/08/18 01:35 Attending physician: Polo Davenport MD Primary care physician: Ester Johns MD Consults: 04/08/18 01:38 Cardiology Consult Stat Comment: Consulting Provider: Lc Saba Consulting Physician: Lc Saba Reason for Consult: h/o atrial fibrillation 04/08/18 06:19 Consult [Physician Consult] Routine Comment: Consulting Provider: Andre Bennett Consulting Physician: Andre Bennett Reason for Consult: SOB 04/09/18 09:48 Consult [Physician Consult] Routine Comment: Consulting Provider: Jaydon Ugalde Consulting Physician: Jaydon Ugalde Reason for Consult: SOB Time Spent in preparation of Discharge (in minutes): 45 Hospital Course - Lab Results Lab Results: Micro Results 04/09/18 22:10 Sputum Gram Stain - Final 04/08/18 13:00 Blood Blood Culture - Preliminary NO GROWTH AFTER 48 HOURS 04/08/18 12:30 Blood Blood Culture - Preliminary NO GROWTH AFTER 48 HOURS 04/08/18 16:54 Urine Random Urine Culture - Final No Growth (<1,000 CFU/ML) 04/08/18 16:54 Naris MRSA Culture (Admit) - Final MRSA NOT DETECTED Most Recent Lab Values WBC 10.6 10^3/uL (4.5-11.0) D 04/11/18 06:00 RBC 3.75 10^6/uL (3.5-6.1) 04/11/18 06:00 Hgb 9.5 g/dL (12.0-16.0) L 04/11/18 06:00 Hct 30.7 % (36.0-48.0) L 04/11/18 06:00 MCV 81.9 fl (80.0-105.0) 04/11/18 06:00 MCH 25.3 pg (25.0-35.0) 04/11/18 06:00 MCHC 30.9 g/dl (31.0-37.0) L 04/11/18 06:00 RDW 16.6 % (11.5-14.5) H 04/11/18 06:00 Plt Count 290 10^3/uL (120.0-450.0) 04/11/18 06:00 MPV 10.7 fl (7.0-11.0) 04/11/18 06:00 Neut % (Auto) 85.9 % (50.0-68.0) H 04/08/18 00:20 Lymph % (Auto) 5.3 % (22.0-35.0) L 04/08/18 00:20 [place] % (Auto) 8.3 % (1.0-6.0) H 04/08/18 00:20 Eos % (Auto) 0.1 % (1.5-5.0) L 04/08/18 00:20 Baso % (Auto) 0.4 % (0.0-3.0) 04/08/18 00:20 Lymph # (Auto) 0.8 (1.2-3.4) L 04/08/18 00:20 [place] # (Auto) 1.3 (0.1-0.6) H 04/08/18 00:20 Eos # (Auto) 0.0 (0.0-0.7) 04/08/18 00:20 Baso # (Auto) 0.06 K/mm3 (0.0-2.0) 04/08/18 00:20 Absolute Neuts (auto) 13.21 (1.4-6.5) H 04/08/18 00:20 Retic Count 1.82 % (0.5-1.5) H 04/09/18 06:00 PT 17.1 SECONDS (9.4-12.5) H 04/08/18 00:20 INR 1.54 04/08/18 00:20 APTT 31.3 Seconds (26.9-38.3) 04/08/18 00:20 Sodium 138 mmol/L (132-148) 04/11/18 06:00 Potassium 3.5 mmol/L (3.6-5.0) L 04/11/18 06:00 Chloride 102 mmol/L (98-107) 04/11/18 06:00 Carbon Dioxide 31 mmol/L (21-33) 04/11/18 06:00 Anion Gap 9 (10-20) L 04/11/18 06:00 BUN 15 mg/dL (7-21) 04/11/18 06:00 Creatinine 0.6 mg/dl (0.7-1.2) L 04/11/18 06:00 Est GFR ( Amer) > 60 04/11/18 06:00 Est GFR (Non-Af Amer) > 60 04/11/18 06:00 Random Glucose 108 mg/dL (70-110) 04/11/18 06:00 Calcium 8.9 mg/dL (8.4-10.5) 04/11/18 06:00 Phosphorus 3.5 mg/dL (2.5-4.5) 04/09/18 06:00 Magnesium 1.9 mg/dL (1.7-2.2) 04/09/18 06:00 Iron 23 ug/dL (45-180) L 04/09/18 06:00 TIBC 364 ug/dL (265-497) 04/09/18 06:00 % Saturation 6 % (20-55) L 04/09/18 06:00 Ferritin 30.2 ng/mL 04/09/18 06:00 Total Bilirubin 0.5 mg/dL (0.2-1.3) 04/11/18 06:00 AST 34 U/L (14-36) 04/11/18 06:00 ALT 25 U/L (7-56) 04/11/18 06:00 Alkaline Phosphatase 101 U/L (38-126) 04/11/18 06:00 Troponin I < 0.01 ng/mL 04/08/18 00:20 NT-Pro-B Natriuret Pep 565 pg/mL (0-450) H 04/08/18 00:20 Total Protein 6.7 g/dL (5.8-8.3) 04/11/18 06:00 Albumin 3.4 g/dL (3.0-4.8) 04/11/18 06:00 Globulin 3.3 gm/dL 04/11/18 06:00 Albumin/Globulin Ratio 1.0 (1.1-1.8) L 04/11/18 06:00 Procalcitonin < 0.05 NG/ML (0.19-0.49) L 04/08/18 12:30 Urine Color Yellow (YELLOW) 04/08/18 17:30 Urine Appearance Clear (CLEAR) 04/08/18 17:30 Urine pH 8.0 (4.7-8.0) 04/08/18 17:30 Ur Specific [place] 1.015 (1.005-1.035) 04/08/18 17:30 Urine Protein Trace mg/dL (<30 mg/dL) H 04/08/18 17:30 Urine Glucose (UA) Negative mg/dL (NEGATIVE) 04/08/18 17:30 Urine Ketones Trace mg/dL (NEGATIVE) H 04/08/18 17:30 Urine Blood Negative (NEGATIVE) 04/08/18 17:30 Urine Nitrate Negative (NEGATIVE) 04/08/18 17:30 Urine Bilirubin Negative (NEGATIVE) 04/08/18 17:30 Urine Urobilinogen 0.2 E.U./dL (<1 E.U./dL) 04/08/18 17:30 Ur Leukocyte Esterase Negative Barbara/uL (NEGATIVE) 04/08/18 17:30 Urine RBC None /hpf (0-2) 04/08/18 17:30 Urine WBC 2 - 5 /hpf (0-6) 04/08/18 17:30 Ur Epithelial Cells 4 - 5 /hpf (0-5) 04/08/18 17:30 Urine Bacteria Mod /hpf (NONE) 04/08/18 17:30 Influenza Typ A,B (EIA) Negative for flu a/b (NEGATIVE) 04/10/18 09:50 - Hospital Course Hospital Course: 73-year-old female with past medical history of hiatal hernia, GERD with Riddle's esophagus, sleep apnea, hypertension, paroxysmal A. fib with electrical cardioversion, presents to the ED with midsternal chest pressure and shortness of breath for 1 day. In the ED basic lab work was done EKG was performed. Chest x-ray was showed moderate vascular congestion. CT of the chest was performed and showed perihilar infiltrate consistent with CHF and/or pneumonia. Patient was admitted to remote telemetry. Patient was started on doxycycline and meropenem as per infectious disease. Cardiology was consulted and patient was started on her home Eliquis, Cardizem, and amiodarone for her A. fib. Echocardiogram showed normal EF with severe TR, and pulmonary hypertension. Patient follows up with a greenhouse manager regarding her pulmonary hypertension. Today patient states that she feels much better and her shortness of breath has improved. Patient denies any coughing, fever, or chest pain. As per infectious disease their recommendations to continue with 7 more days of doxycycline. Patient states that otherwise she has all her medications at home. Dx: 1. Hospital acquired pneumonia 2. Atrial fibrillation status post cardioversion 04/05/18 3. Hyperlipidemia 4. Obesity BMI of 33 5. Iron def Anemia 6. Hx of GERD 7. Penicillin allergy Discharge Exam - Head Exam Head Exam: NORMAL INSPECTION - Eye Exam Eye Exam: EOMI, PERRL - Respiratory Exam Respiratory Exam: Clear to PA & Lateral. absent: Rales, Wheezes - Cardiovascular Exam Cardiovascular Exam: REGULAR RHYTHM, +S1, +S2 - GI/Abdominal Exam GI & Abdominal Exam: Normal Bowel Sounds, Soft. absent: Tenderness - Neurological Exam Neurological exam: Alert, Oriented x3 - Psychiatric Exam Psychiatric exam: Normal Mood - Skin Skin Exam: Dry, Warm Discharge Plan - Discharge Medications Prescriptions: RX: Doxycycline Hyclate [Doryx] 100 mg PO Q12 #14 cap RX: Ferrous Sulfate [Feosol] 324 mg PO BID #60 ect RX: Polyethylene Glycol 3350 [Miralax] 17 gm PO BID 30 Days packet - Follow Up Plan Condition: GOOD Disposition: HOME/ ROUTINE Additional Instructions: If your symptoms recur or come back to the ED Follow-up with your PMD within 3 days Follow-up with pulmonary regarding your pulmonary hypertension Take your medications along with antibiotics , Doxycycline for 7 day, as prescribed Referrals: Ester Johns MD [Primary Care Provider] - Follow up with primary <Polo Davenport - Last Filed: 04/11/18 13:59> Provider - Provider Date of Admission: 04/08/18 01:35 Attending physician: Polo Davenport MD Primary care physician: Ester Johns MD Consults: 04/08/18 01:38 Cardiology Consult Stat Comment: Consulting Provider: Lc Saba Consulting Physician: Lc Saba Reason for Consult: h/o atrial fibrillation 04/08/18 06:19 Consult [Physician Consult] Routine Comment: Consulting Provider: Andre Bennett Consulting Physician: Andre Bennett Reason for Consult: SOB 04/09/18 09:48 Consult [Physician Consult] Routine Comment: Consulting Provider: Jaydon Ugalde Consulting Physician: Jaydon Ugalde Reason for Consult: SOB Hospital Course - Lab Results Lab Results: Micro Results 04/08/18 13:00 Blood Blood Culture - Preliminary NO GROWTH AFTER 3 DAYS 04/08/18 12:30 Blood Blood Culture - Preliminary NO GROWTH AFTER 3 DAYS 04/09/18 22:10 Sputum Gram Stain - Final 04/08/18 16:54 Urine Random Urine Culture - Final No Growth (<1,000 CFU/ML) 04/08/18 16:54 Naris MRSA Culture (Admit) - Final MRSA NOT DETECTED Most Recent Lab Values WBC 10.6 10^3/uL (4.5-11.0) D 04/11/18 06:00 RBC 3.75 10^6/uL (3.5-6.1) 04/11/18 06:00 Hgb 9.5 g/dL (12.0-16.0) L 04/11/18 06:00 Hct 30.7 % (36.0-48.0) L 04/11/18 06:00 MCV 81.9 fl (80.0-105.0) 04/11/18 06:00 MCH 25.3 pg (25.0-35.0) 04/11/18 06:00 MCHC 30.9 g/dl (31.0-37.0) L 04/11/18 06:00 RDW 16.6 % (11.5-14.5) H 04/11/18 06:00 Plt Count 290 10^3/uL (120.0-450.0) 04/11/18 06:00 MPV 10.7 fl (7.0-11.0) 04/11/18 06:00 Neut % (Auto) 85.9 % (50.0-68.0) H 04/08/18 00:20 Lymph % (Auto) 5.3 % (22.0-35.0) L 04/08/18 00:20 [place] % (Auto) 8.3 % (1.0-6.0) H 04/08/18 00:20 Eos % (Auto) 0.1 % (1.5-5.0) L 04/08/18 00:20 Baso % (Auto) 0.4 % (0.0-3.0) 04/08/18 00:20 Lymph # (Auto) 0.8 (1.2-3.4) L 04/08/18 00:20 [place] # (Auto) 1.3 (0.1-0.6) H 04/08/18 00:20 Eos # (Auto) 0.0 (0.0-0.7) 04/08/18 00:20 Baso # (Auto) 0.06 K/mm3 (0.0-2.0) 04/08/18 00:20 Absolute Neuts (auto) 13.21 (1.4-6.5) H 04/08/18 00:20 Retic Count 1.82 % (0.5-1.5) H 04/09/18 06:00 PT 17.1 SECONDS (9.4-12.5) H 04/08/18 00:20 INR 1.54 04/08/18 00:20 APTT 31.3 Seconds (26.9-38.3) 04/08/18 00:20 Sodium 138 mmol/L (132-148) 04/11/18 06:00 Potassium 3.5 mmol/L (3.6-5.0) L 04/11/18 06:00 Chloride 102 mmol/L (98-107) 04/11/18 06:00 Carbon Dioxide 31 mmol/L (21-33) 04/11/18 06:00 Anion Gap 9 (10-20) L 04/11/18 06:00 BUN 15 mg/dL (7-21) 04/11/18 06:00 Creatinine 0.6 mg/dl (0.7-1.2) L 04/11/18 06:00 Est GFR ( Amer) > 60 04/11/18 06:00 Est GFR (Non-Af Amer) > 60 04/11/18 06:00 Random Glucose 108 mg/dL (70-110) 04/11/18 06:00 Calcium 8.9 mg/dL (8.4-10.5) 04/11/18 06:00 Phosphorus 3.5 mg/dL (2.5-4.5) 04/09/18 06:00 Magnesium 1.9 mg/dL (1.7-2.2) 04/09/18 06:00 Iron 23 ug/dL (45-180) L 04/09/18 06:00 TIBC 364 ug/dL (265-497) 04/09/18 06:00 % Saturation 6 % (20-55) L 04/09/18 06:00 Ferritin 30.2 ng/mL 04/09/18 06:00 Total Bilirubin 0.5 mg/dL (0.2-1.3) 04/11/18 06:00 AST 34 U/L (14-36) 04/11/18 06:00 ALT 25 U/L (7-56) 04/11/18 06:00 Alkaline Phosphatase 101 U/L (38-126) 04/11/18 06:00 Troponin I < 0.01 ng/mL 04/08/18 00:20 NT-Pro-B Natriuret Pep 565 pg/mL (0-450) H 04/08/18 00:20 Total Protein 6.7 g/dL (5.8-8.3) 04/11/18 06:00 Albumin 3.4 g/dL (3.0-4.8) 04/11/18 06:00 Globulin 3.3 gm/dL 04/11/18 06:00 Albumin/Globulin Ratio 1.0 (1.1-1.8) L 04/11/18 06:00 Procalcitonin < 0.05 NG/ML (0.19-0.49) L 04/08/18 12:30 Urine Color Yellow (YELLOW) 04/08/18 17:30 Urine Appearance Clear (CLEAR) 04/08/18 17:30 Urine pH 8.0 (4.7-8.0) 04/08/18 17:30 Ur Specific [place] 1.015 (1.005-1.035) 04/08/18 17:30 Urine Protein Trace mg/dL (<30 mg/dL) H 04/08/18 17:30 Urine Glucose (UA) Negative mg/dL (NEGATIVE) 04/08/18 17:30 Urine Ketones Trace mg/dL (NEGATIVE) H 04/08/18 17:30 Urine Blood Negative (NEGATIVE) 04/08/18 17:30 Urine Nitrate Negative (NEGATIVE) 04/08/18 17:30 Urine Bilirubin Negative (NEGATIVE) 04/08/18 17:30 Urine Urobilinogen 0.2 E.U./dL (<1 E.U./dL) 04/08/18 17:30 Ur Leukocyte Esterase Negative Barbara/uL (NEGATIVE) 04/08/18 17:30 Urine RBC None /hpf (0-2) 04/08/18 17:30 Urine WBC 2 - 5 /hpf (0-6) 04/08/18 17:30 Ur Epithelial Cells 4 - 5 /hpf (0-5) 04/08/18 17:30 Urine Bacteria Mod /hpf (NONE) 04/08/18 17:30 Influenza Typ A,B (EIA) Negative for flu a/b (NEGATIVE) 04/10/18 09:50 Patient was seen and examined by. I have reviewed the note of the infertility medical assistant and have gone over the plan of care. I agree with the note. I have reviewed the medications and the last labs. Pt with pulm HTN and will f/u with pulmonary. She has HCAP and has improved. She was seen by Pulm and ID. She is breathing better. Eating well. She does not have aspiration pneumonia. Her Afib is controlled. She is ambulating. D/C home F/U with Dr Sanchez, Z[facility]
--- NOTE | 2018-04-11 15:57 | PN ---
DATE: 04/11/2018 SUBJECTIVE: The patient is seen sitting in a chair, on remote telemetry. She feels somewhat better. Plans are for discharge home later today. She continues to have some exertional dyspnea and intermittent chest discomfort. CURRENT MEDICATIONS: Include diltiazem 180 mg b.i.d., amiodarone 200 mg b.i.d., doxycycline, DuoNeb inhaler, Eliquis 5 mg b.i.d., ferrous sulfate, Arnuity Ellipta, Lasix 40 mg daily, potassium 20 mEq daily, Lipitor 20 mg daily, meropenem, Protonix, Prozac. OBJECTIVE: GENERAL: She is a middle-aged woman who appears comfortable at rest. VITAL SIGNS: Blood pressure is 150/76 with pulse of 66, respirations are 16. She is afebrile. HEENT: No JVD. CHEST: Bilateral scattered rhonchi. HEART: PMI displaced laterally with systolic murmur at the lower left sternal border as well as at the apex. ABDOMEN: Soft, nontender with bowel sounds. EXTREMITIES: No edema. DIAGNOSTIC DATA: White count is 10.6, hematocrit 9.5 and 30.7 with platelet count 290,000. Potassium is 3.5. BUN and creatinine 15 and 0.6. Echocardiogram was reviewed and showed evidence of biatrial enlargement, normal LV size and systolic function, moderate mitral regurgitation, mild aortic insufficiency, and severe tricuspid regurgitation as well as severe pulmonary hypertension with right ventricular systolic pressure of 96 mmHg. IMPRESSION: 1. Recent bronchitis, clinically improved. 2. Persistent dyspnea with evidence of worsening pulmonary hypertension, on echocardiography. 3. Paroxysmal atrial fibrillation status post recent cardioversion, currently in sinus rhythm. 4. Mitral regurgitation. 5. Rest of problems as noted. RECOMMENDATIONS: Her current medications will continue for now. Lasix will be switched to oral administration. Amiodarone will be reduced to once daily dosing. She is stable for discharge from a cardiac standpoint; however, reassessment of her pulmonary artery pressures will be necessary. She did have evidence of moderate pulmonary hypertension on an echocardiogram last May and underwent cardiac catheterization in October at which time her PA pressures were relatively normal; however, now her RV systolic pressures are being reported as 90 mmHg. This may in part could be causing some of her current symptomatology. Close outpatient followup will be arranged and outpatient catheterization will be scheduled as well. Ander Beltran MD Diomedes # [id number] CHANI
--- NOTE | 2018-04-11 16:53 | CP.PCM.PN ---
Subjective - Date & Time of Evaluation Date of Evaluation: 04/11/18 Time of Evaluation: 10:00 - Subjective Subjective: Patient is feeling better, breathing better, not in distress. No fevers. Objective - Vital Signs/Intake and Output Vital Signs (last 24 hours): Temp Pulse Resp BP Pulse Ox 98.2 F 65 20 143/79 97 04/10/18 08:01 04/10/18 08:01 04/10/18 08:01 04/10/18 09:44 04/10/18 08:01 Intake and Output: 04/10/18 04/10/18 06:59 18:59 Intake Total 360 Balance 360 - Medications Medications: Current Medications Acetaminophen (Tylenol 325mg Tab) 650 mg PO Q6H PRN PRN Reason: Headache Last Admin: 04/10/18 00:40 Dose: 650 mg Albuterol/Ipratropium (Duoneb 3 Mg/0.5 Mg (3 Ml) Ud) 3 ml IH Q4H PRN PRN Reason: Shortness of Breath Albuterol/Ipratropium (Duoneb 3 Mg/0.5 Mg (3 Ml) Ud) 3 ml IH TIDRESP [facility] Last Admin: 04/10/18 13:24 Dose: 3 ml Amiodarone HCl (Cordarone) 200 mg PO BID [facility] Last Admin: 04/10/18 09:44 Dose: 200 mg Apixaban (Eliquis) 5 mg PO BID [facility]; Protocol Last Admin: 04/10/18 09:44 Dose: 5 mg Atorvastatin Calcium (Lipitor) 20 mg PO QPM [facility] Last Admin: 04/09/18 18:25 Dose: 20 mg Diltiazem HCl (Cardizem Cd) 180 mg PO BID [facility] Last Admin: 04/10/18 09:44 Dose: 180 mg Doxycycline Hyclate (Doryx) 100 mg PO Q12 [facility]; Protocol Stop: 04/17/18 22:01 Last Admin: 04/10/18 09:44 Dose: 100 mg Ferrous Sulfate (Feosol) 324 mg PO BID [facility] Last Admin: 04/10/18 13:08 Dose: 324 mg Fluoxetine HCl (Prozac) 20 mg PO DAILY [facility] Last Admin: 04/10/18 09:44 Dose: 20 mg Furosemide (Lasix) 40 mg IV DAILY [facility] Last Admin: 02/11/19 09:44 Dose: 40 mg Meropenem (Merrem Iv 1 Gm Premix) 1 gm in 50 mls @ 100 mls/hr IVPB Q8 [facility]; Protocol Stop: 04/16/18 14:01 Last Admin: 04/10/18 13:09 Dose: 100 mls/hr Ubidecarenone [Coq- 10] 100 Mg (Home Med) 100 mg PO DAILY [facility] Last Admin: 04/10/18 09:54 Dose: Not Given Fluticasone Furoate [Arnuity Ellipta] ( Home) 1 puff IH DAILY [facility] Last Admin: 04/10/18 09:53 Dose: Not Given Pantoprazole Sodium (Protonix Ec Tab) 40 mg PO 0600 [facility] Last Admin: 04/10/18 05:19 Dose: 40 mg Polyethylene Glycol (Miralax) 17 gm PO BID [facility] Last Admin: 04/10/18 13:08 Dose: 17 gm Potassium Chloride (K-Dur 20 Meq Er Tab) 20 meq PO BRK [facility] Last Admin: 04/10/18 10:45 Dose: 20 meq - Labs Labs: 04/09/18 06:00 04/09/18 06:00 PT 17.1 SECONDS (9.4-12.5) H 04/08/18 00:20 INR 1.54 04/08/18 00:20 APTT 31.3 Seconds (26.9-38.3) 04/08/18 00:20 - Constitutional Appears: Chronically Ill - Head Exam Head Exam: NORMAL INSPECTION - Respiratory Exam Respiratory Exam: Decreased Breath Sounds - Cardiovascular Exam Cardiovascular Exam: +S1, +S2 - GI/Abdominal Exam GI & Abdominal Exam: Soft. absent: Tenderness Assessment and Plan - Assessment and Plan (Free Text) Plan: Assessment SIRS R/O sepsis due to HCAP atrial fibrillation breast cancer S/P left lumpectomy GERD hiatal hernia HTN depression chronic anemia sleep apnea on CPAP S/P cholecystectomy S/P salpingo-oophorectomy Plan on Doxycycline and Merrem day 4 for 4-7 days; cultures continue to be negative, may d/c Merrem today and complete course with Doxycycline; PCT is <0.05 rapid Influenza test is negative
--- NOTE | 2018-04-17 18:13 | PQF ---
PROVIDER RESPONSE TEXT: No CHF present REVIEWER QUERY TEXT: CHF Acuity and Type Congestive Heart Failure is documented in the Medical Record. Please document the type and acuity (in cludes probable or suspected) Such as: Type: -- Systolic -- Diastolic -- Combined -- Other, please specify Acuity: -- Acute -- Chronic -- Acute on chronic -- Other, please specify Also please document the underlying cause of the CHF (includes probable or suspected) The patient's Clinical Indicators include: CT chest shows that B/L perihilar infiltrates could represent either CHF or pneumonia. Patient being treated with antibiotics for the pneumonia and is also on IV Lasix daily. There is some documentation of "mild CHF" and "pulmonary vascular congestion". Please clarify if CHF is present on admission, type and acuity if present. Query created by: Salima Mosqueda on 04/11/2018 10:34 AM Electronically signed by: Polo Daevnport MD 04/17/2018 6:09 PM
== END 2018-04-11 13:02 | disposition home or self-care (01) | DRG 194 ==
LOC: ED 23:47 → ERH 04-08 01:35 → 3RNO 04-08 02:20
PROVIDERS: ADMIT Internal Medicine Nephrology; ATTEND Internal Medicine Nephrology
DX: J18.9 Pneumonia, unspecified organism (principal); J44.0 Chronic obstructive pulmonary disease with (acute) lower respiratory infection; I48.0 Paroxysmal atrial fibrillation; K44.9 Diaphragmatic hernia without obstruction or gangrene; D50.9 Iron deficiency anemia, unspecified; K22.70 Barrett's esophagus without dysplasia; K21.9 Gastro-esophageal reflux disease without esophagitis; G47.33 Obstructive sleep apnea (adult) (pediatric); I10 Essential (primary) hypertension; E78.5 Hyperlipidemia, unspecified; I27.20 Pulmonary hypertension, unspecified; F32.9 Major depressive disorder, single episode, unspecified; I08.1 Rheumatic disorders of both mitral and tricuspid valves; K59.00 Constipation, unspecified; Y95 Nosocomial condition; E66.9 Obesity, unspecified; Z68.33 Body mass index [BMI] 33.0-33.9, adult; Z92.21 Personal history of antineoplastic chemotherapy; Z85.3 Personal history of malignant neoplasm of breast; Z87.891 Personal history of nicotine dependence; Z92.3 Personal history of irradiation; Z88.0 Allergy status to penicillin; Z79.01 Long term (current) use of anticoagulants

== ENCOUNTER 2018-05-16 12:57 | Outpatient (CLI) | payer MEDICARE | END 2018-05-16 12:58 | disposition home or self-care (01) | LOC: RAD 12:57 ==

== ENCOUNTER 2018-07-03 11:03 | Outpatient (CLI) | payer MEDICARE | END 2018-07-03 11:04 | disposition home or self-care (01) | LOC: RAD 11:04 ==